=== PATIENT | male | born 1990 | race Caucasian/White ===

== ENCOUNTER 2017-01-21 10:05 | Emergency (ER) | payer SELFPAY ==
[~2017-01-21] VITALS: Ht 175.3 cm; Wt 86.2 kg
[~2017-01-21 10:05] MED LIST: AMOX500C2 PO; CEPH500C PO; CHLO473M PO; CLIN150C17 PO; CLIN300C11 PO; HYDR-3812 PO; HYDR-757 PO; IBUP-1779 PO; ONDAN4ODT PO; OXYC-471 PO; PRD50T PO; TRM50T PO
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
[2017-01-21] MEDS ORDERED: fentaNYL INJECTION 100 MCG/2 ML AMP IVP ONE (11:15)
[2017-01-21] MEDS ORDERED: ORPHENADRINE 60 MG/2 ML (NORFLEX) AMP IV ONE (11:15)
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
[2017-01-21] MEDS ORDERED: NS 100 ML (IVPB) BAG IV ONE (11:30)
[2017-01-21] MEDS ORDERED: CATHETER FLUSH 10 ML SYR IV PRN (11:30)
[2017-01-21] MEDS ORDERED: IOHEXOL 350 MG/ML 100 ML (OMNIPAQUE 350) VIAL IV ONE (11:30)
[2017-01-21 11:44] LABS: BASOPHILS % (AUTO) 0 % (0-10); BILIRUBIN,URINE NEGATIVE (NEGATIVE); EOSINOPHILS # (AUTO) 0.1 10^3/uL (0.0-0.3); EOSINOPHILS % (AUTO) 1 % (0-10); KETONES,URINE NEGATIVE (NEGATIVE); LEUKOCYTE ESTERASE ,URINE NEGATIVE (NEGATIVE); LYMPHOCYTES # (AUTO) 2.4 X 10^3 (1.0-4.0); LYMPHOCYTES % (AUTO) 31 % (12-44); MEAN CORPUSCULAR HEMOGLOBIN 32 PG (25-34); MEAN CORPUSCULAR HGB CONC 35 G/DL (32-36); MEAN CORPUSCULAR VOLUME 91 FL (80-99); MEAN PLATELET VOLUME 10.1 FL (7.4-10.4); MONOCYTES # (AUTO) 0.6 X 10^3 (0.0-1.0); MONOCYTES % (AUTO) 8 % (0-12); NEUTROPHILS # (AUTO) 4.7 X 10^3 (1.8-7.8); NEUTROPHILS % (AUTO) 60 % (42-75); NITRITE,URINE NEGATIVE (NEGATIVE); PH,URINE 7 (5-9); PLATELET COUNT 163 10^3/uL (130-400); PROTEIN,URINE NEGATIVE (NEGATIVE); RED CELL DISTRIBUTION WIDTH 12.1 % (10.0-14.5); UROBILINOGEN,URINE NORMAL (NORMAL); WHITE BLOOD COUNT 7.8 10^3/uL (4.3-11.0)
[2017-01-21 11:51] LABS: SQUAMOUS EPITHELIAL CELL,UR RARE /HPF
[2017-01-21 12:05] LABS: ALANINE AMINOTRANSFERASE 21 U/L (0-55); ALBUMIN 4.3 G/DL (3.2-4.5); ANION GAP 11 MMOL/L (5-14); ASPARTATE AMINO TRANSFERASE 22 U/L (5-34); BILIRUBIN,TOTAL 0.3 MG/DL (0.1-1.0); BLOOD UREA NITROGEN 10 MG/DL (7-18); BUN/CREATININE RATIO 11; CALCIUM 9.3 MG/DL (8.5-10.1); CARBON DIOXIDE 22 MMOL/L (21-32); CHLORIDE 108 MMOL/L (98-107); CREATININE SERUM 0.89 MG/DL (0.60-1.30); GFR ESTIMATED > 60; GLUCOSE 99 MG/DL (70-105); POTASSIUM 4.2 MMOL/L (3.6-5.0); SODIUM 141 MMOL/L (135-145); TOTAL PROTEIN 6.5 G/DL (6.4-8.2)
[2017-01-21] MEDS ORDERED: morphine INJ 10 MG/ML 1ML (SYR OR VIAL) IVP ONE (12:15)
--- NOTE | 2017-01-21 12:15 | Diagnostic Imaging Report ---
PROCEDURE: CT lumbar spine without contrast. TECHNIQUE: Multiple contiguous axial images were obtained through the lumbar spine without the use of intravenous contrast. Sagittal and coronal reformations were then performed. INDICATION: Low back pain injury and pain. COMPARISON: None. FINDINGS: There are 5 lumbar type vertebral bodies. Loss of the normal lumbar lordosis may be positional. Alignment is otherwise unremarkable. Vertebral body heights are maintained. No fractures. No pars defects. No appreciable spondylotic change. No spinal canal narrowing on this noncontrast exam. No neural foraminal narrowing. The visualized paravertebral soft tissues are unremarkable. IMPRESSION: Negative lumbar spine CT. Dictated by: Dictated on workstation # [id number]
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
[2017-01-21] MEDS ORDERED: KETOROLAC 30 MG/ML VIAL IVP ONE (13:00)
[2017-01-21] MEDS ORDERED: HYDR-3812 PO (13:12)
[2017-01-21] MEDS ORDERED: PRD20T PO (13:12)
[2017-01-21] MEDS ORDERED: predniSONE 20 MG TAB PO ONE (13:15)
[2017-01-21] MEDS ORDERED: oxyCODONE/APAP 5/325MG (PERCOCET 5) TABLET PO ONE (13:15)
[2017-01-21 13:23] VITALS: BP 135/75
== END 2017-01-21 13:22 | disposition home or self-care (01) ==
LOC: EDUNIT# 10:05 → ER 10:07
DX: S39.92XA Unspecified injury of lower back, initial encounter (principal); R10.32 Left lower quadrant pain; F17.210 Nicotine dependence, cigarettes, uncomplicated; W01.0XXA Fall on same level from slipping, tripping and stumbling without subsequent striking against object, initial encounter; Y99.8 Other external cause status
CPT/HCPCS: 36415; 71260; 72131; 74177; 80053; 81000; 85025; 96374; 96375

== ENCOUNTER 2017-02-02 22:03 | Emergency (ER) | payer SELFPAY ==
[~2017-02-02] VITALS: Ht 175.3 cm; Wt 88.5 kg
[~2017-02-02 22:03] MED LIST changes: +PRD20T PO
[2017-02-02] MEDS ORDERED: RX-CYCLOBENZAPRINE 10 MG (FLEXERIL) TAB PPK#3 PO STA (22:45)
[2017-02-02] MEDS ORDERED: RX-NAPROXEN (NAPROSYN) 250 MG TAB PPK#4 PO STA (22:45)
[2017-02-02] MEDS ORDERED: NAPR500T3 PO (22:49)
[2017-02-02] MEDS ORDERED: TRAM-42 PO (22:49)
[2017-02-02] MEDS ORDERED: CYCL10TA9 PO (22:49)
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
[2017-02-02 23:00] VITALS: BP 122/77
[2017-02-02] MEDS: RX-TRAMADOL 50 MG (ULTRAM) TAB PPK#4 PO STA (23:00)
--- OUTSIDE RECORDS SUMMARY | 2017-02-17 19:35 | XMS REPORT | Continuity of Care Document ---
Author Author [facility] Address Unknown Phone Unavailable Allergies Active Description Code Type Severity Reaction Onset Reported/Identified Relationship to Patient Clinical Status Yes tramadol [id number] Drug Allergy Mild Rash 02/02/2017 Yes No Known Drug Allergies [id number] Drug Allergy Unknown N/ A 02/03/2017 Medications Problems Date Dx Coded Attending Type [...] Ot 782.1 NONSPECIF SKIN ERUPT NEC 12/05/2011 CHUNG DO, OSWALDO K 465.9 UPPER RESPIRATORY INFECTION 12/05/2011 CHUNG DO, OSWALDO K 698.9 PRURITUS NOS 12/15/2013 CHUNG DO, OSWALDO K 706.2 SEBACEOUS CYST 08/07/2015 SAMIR NICHOLS ANDRIA Taveras Ot 784.2 SWELLING IN HEAD NECK 08/10/2015 DAJUAN DAMIAN, ELDA Osorio Ot F17.210 08/10/2015 DAJUAN DAMIAN, ELDA Osorio Ot J32.4 08/10/2015 DAJUAN DAMIAN, ELDA Osorio Ot K04.7 08/10/2015 DAJUAN ADMIAN, ELDA Osorio Ot M27.2 08/14/2015 SONIA BRADLEY MD Ot J32.4 08/14/2015 SONIA BRADLEY MD Ot K04.7 08/14/2015 MIRNA DAMIAN, SONIA Beckham [...] ARREDONDO APRN Ot K02.9 DENTAL CARIES, UNSPECIFIED 01/21/2017 RITA DAMIAN, BRENDA Sweeney Ot F17.210 NICOTINE DEPENDENCE, CIGARETTES, UNCOMPL 01/21/2017 BRENDA SALINAS MD Ot R10.32 LEFT LOWER QUADRANT PAIN 01/21/2017 BRENDA SALINAS MD Ot S39.92XA UNSPECIFIED INJURY OF LOWER BACK, INITIA 01/21/2017 BRENDA SALINAS MD Ot W01.0XXA FALL SAME LEV FROM SLIP/TRIP W/O STRIKE 01/21/2017 BRENDA SALINAS MD Ot Y99.8 OTHER EXTERNAL CAUSE STATUS 01/22/2017 BRENDA SALINAS MD Ot F17.210 NICOTINE DEPENDENCE, CIGARETTES, UNCOMPL 01/22/2017 BRENDA SALINAS MD Ot R10.32 LEFT LOWER QUADRANT PAIN 01/22/2017 BRENDA SALINAS MD Ot S39.92XA UNSPECIFIED INJURY OF LOWER BACK, INITIA 01/22/2017 BRENDA SALINAS MD Ot W01.0XXA FALL SAME LEV FROM SLIP/TRIP W/O STRIKE 01/22/2017 BRENDA SALINAS MD Ot Y99.8 OTHER EXTERNAL CAUSE STATUS 01/28/2017 BRENDA SALINAS MD Ot F17.210 NICOTINE DEPENDENCE, CIGARETTES, UNCOMPL 01/28/2017 BRENDA SALINAS MD Ot R10.32 LEFT LOWER QUADRANT PAIN 01/28/2017 BRENDA SALINAS MD Ot S39.92XA UNSPECIFIED INJURY OF LOWER BACK, INITIA 01/28/2017 BRENDA SALINAS MD Ot W01.0XXA FALL SAME LEV FROM SLIP/TRIP W/O STRIKE 01/28/2017 BRENDA SALINAS MD Ot Y99.8 OTHER EXTERNAL CAUSE STATUS Procedures Results Test Result Range Complete blood count (CBC) with automated white blood cell (WBC) differential - 01/21/17 11:30 Blood leukocytes automated count (number/volume) 7.8 10*3/ uL 4.3-11.0 Blood erythrocytes automated count (number/volume) 5.00 10*6 /uL 4.35-5.85 Venous blood hemoglobin measurement (mass/volume) 16.0 g/dL 13.3-17.7 Blood hematocrit (volume fraction) 46 % 40-54 Automated erythrocyte mean corpuscular volume 91 [foz_us] 80-99 Automated erythrocyte mean corpuscular hemoglobin (mass per erythrocyte) 32 pg 25-34 Automated erythrocyte mean corpuscular hemoglobin concentration measurement ( mass/volume) 35 g/dL 32-36 Automated erythrocyte distribution width ratio 12.1 % 10.0-14.5 Automated blood platelet count (count/volume) 163 10*3/uL 130-400 Automated blood platelet mean volume measurement 10.1 [foz_ us] 7.4-10.4 Automated blood neutrophils/100 leukocytes 60 % 42-75 Automated blood lymphocytes/100 leukocytes 31 % 12-44 Blood monocytes/100 leukocytes 8 % 0-12 Automated blood eosinophils/100 leukocytes 1 % 0-10 Automated blood basophils/100 leukocytes 0 % 0-10 Blood neutrophils automated count (number/volume) 4.7 10*3 1.8-7.8 Blood lymphocytes automated count (number/volume) 2.4 10*3 1.0-4.0 Blood monocytes automated count (number/volume) 0.6 10*3 0.0-1.0 Automated eosinophil count 0.1 10*3/uL 0.0-0.3 Automated blood basophil count (count/volume) 0.0 10*3/uL 0.0-0.1 Complete urinalysis with reflex to culture - 01/21/17 11:30 Urine color determination YELLOW NRG Urine clarity determination CLEAR NRG Urine pH measurement by test strip 7 5- 9 Specific gravity of urine by test strip 1.015 1.016-1.022 Urine protein assay by test strip, semi-quantitative NEGATIVE NEGATIVE Urine glucose detection by automated test strip NEGATIVE NEGATIVE Erythrocytes detection in urine sediment by light microscopy NEGATIVE NEGATIVE Urine ketones detection by automated test strip NEGATIVE NEGATIVE Urine nitrite detection by test strip NEGATIVE NEGATIVE Urine total bilirubin detection by test strip NEGATIVE NEGATIVE Urine urobilinogen measurement by automated test strip (mass/volume) NORMAL NORMAL Urine leukocyte esterase detection by dipstick NEGATIVE NEGATIVE Automated urine sediment erythrocyte count by microscopy (number/high power field) NONE NRG Automated urine sediment leukocyte count by microscopy (number/high power field ) NONE NRG Bacteria detection in urine sediment by light microscopy NEGATIVE NRG Squamous epithelial cells detection in urine sediment by light microscopy RARE NRG Crystals detection in urine sediment by light microscopy NONE NRG Casts detection in urine sediment by light microscopy NONE NRG Mucus detection in urine sediment by light microscopy NEGATIVE NRG Complete urinalysis with reflex to culture NO NRG Comprehensive metabolic panel - 01/21/17 11:30 Serum or plasma sodium measurement (moles/volume) 141 mmol/ L 135-145 Serum or plasma potassium measurement (moles/volume) 4.2 mmol/L 3.6-5.0 Serum or plasma chloride measurement (moles/volume) 108 mmol /L 98-107 Carbon dioxide 22 mmol/L 21-32 Serum or plasma anion gap determination (moles/volume) 11 mmol/L 5-14 Serum or plasma urea nitrogen measurement (mass/volume) 10 mg/dL 7-18 Serum or plasma creatinine measurement (mass/volume) 0.89 mg /dL 0.60-1.30 Serum or plasma urea nitrogen/creatinine mass ratio 11 NRG Serum or plasma creatinine measurement with calculation of estimated glomerular filtration rate > NRG Serum or plasma glucose measurement (mass/volume) 99 mg/dL 70-105 Serum or plasma calcium measurement (mass/volume) 9.3 mg/dL 8.5-10.1 Serum or plasma total bilirubin measurement (mass/volume) 0.3 mg/dL 0.1-1.0 Serum or plasma alkaline phosphatase measurement (enzymatic activity/volume) 55 U/L 40-136 Serum or plasma aspartate aminotransferase measurement (enzymatic activity/ volume) 22 U/L 5-34 Serum or plasma alanine aminotransferase measurement (enzymatic activity/volume ) 21 U/L 0-55 Serum or plasma protein measurement (mass/volume) 6.5 g/dL 6.4-8.2 Serum or plasma albumin measurement (mass/volume) 4.3 g/dL 3.2-4.5 Encounters ACCT No. Visit Date/Time Discharge Status Pt. Type Provider Facility Loc./Unit Complaint [id number] 12/15/2013 16:46:00 12/15/2013 23: 59:59 CLS Outpatient OSWALDO CHUNG DO
== END 2017-02-02 23:00 | disposition home or self-care (01) ==
LOC: EDUNIT# 22:03 → ER 22:05
DX: M54.5 Low back pain (principal); F17.210 Nicotine dependence, cigarettes, uncomplicated
CPT/HCPCS: 99281

== ENCOUNTER 2019-08-30 12:21 | Emergency (ER) | payer SELFPAY ==
[~2019-08-30] VITALS: Ht 175.3 cm; Wt 106.1 kg
[~2019-08-30 12:21] MED LIST changes: +ACHD5005 PO; +CYCL10TA9 PO; -HYDR-3812 PO; +HYDR-4226 PO; -HYDR-757 PO; +NAPR-915 PO; +TRAM-42 PO
--- NOTE | 2019-08-30 12:50 | ED Fall/Injury ---
General Chief Complaint: Laceration Stated Complaint: LT EYELID LAC Source: patient History of Present Illness Date Seen by Provider: Aug 30, 2019 Time Seen by Provider: 12:30 Initial Comments Superficial Left upper eyelid laceration. Cut with small piece of metal. No eye fb sensation or eye pain. Tetanus is up to date. Occurred: just prior to arrival Severity: mild Injuries/Pain Location: no injury Context: unknown Loss of Consciousness: no loss of consciousness Associated Symptoms (Fall): Denies Symptoms Allergies and Home Medications Allergies Coded Allergies: No Known Drug Allergies (Unverified , 02/03/17) Home Medications Cyclobenzaprine HCl 10 Mg Tablet, 10 MG PO Q8H Prescribed by: ANDRIA DAWSON on 02/02/172248 Ibuprofen 400 Mg Tablet, 400 MG PO Q4H PRN for PAIN Over the counter. No more than 2400 mg in 24 hours Prescribed by: LUCÍA MORALES on 08/10/15 0920 Naproxen 500 Mg Tablet, 500 MG PO BID Prescribed by: ANDRIA DAWSON on 02/02/172248 Tramadol HCl 50 Mg Tablet, 50 MG PO Q4H Prescribed by: ANDRIA DAWSON on 02/02/172248 Patient Home Medication List Home Medication List Reviewed: Yes Review of Systems Review of Systems Constitutional: no symptoms reported Eyes: No Symptoms Reported Past Kibtgha-Wlrqwc-Nleouy Hx Past Med/Social Hx: Reviewed Nursing Past Med/Soc Hx Patient Social History Type Used: Cigarettes Recent Foreign Travel: No Recent Hopitalizations: No Immunizations Up To Date Tetanus Booster (TDap): Less than 5yrs PED Vaccines UTD: Yes Seasonal Allergies Seasonal Allergies: No Past Medical History Reproductive Disorders: No Sexually Transmitted Disease: No HIV/AIDS: No ADD/ADHD Adverse Reaction/Blood Tranf: No Physical Exam Vital Signs Capillary Refill : Height, Weight, BMI Height: 5'9.00" Weight: 195lbs. 0.0oz. 88.596372wt; 29.12 BMI Method:Stated General Appearance: WD/WN, no apparent distress HEENT: PERRL/EOMI, normal ENT inspection, other (5 mm superficial (partial thickness) horizontal laceration left upper eyelid) Procedures/Interventions Wound Location: Face Wound's Depth, Shape: superficial Wound Explored: clean Betadine Prep?: Yes Suture: Ethlion Suture Size: 6-0 Number of Sutures: 1 Departure Communication (Admissions) Isalated superficial left upper eyelid laceration without ocular involvement. Wound closed by suture per patient request. Patient instructed to return the ED in 5-6 days for suture removal, sooner if signs of infection. Impression Primary Impression: Eyelid laceration, left Disposition: 01 HOME, SELF-CARE Condition: Stable Departure-Patient Inst. Referrals: NO,LOCAL PHYSICIAN (PCP/Family) Primary Care Physician Patient Instructions: Wound Care Add. Discharge Instructions: Return to the ED in 5-6 days for suture removal. Return sooner if signs of infection. All discharge instructions reviewed with patient and/or family. Voiced unde rstanding. NAOMI ABBOTT DO Aug 30, 2019 12:50
[2019-08-30 12:58] VITALS: BP 137/77
== END 2019-08-30 12:58 | disposition home or self-care (01) ==
LOC: EDUNIT# 12:21 → ER FS 12:23
DX: S01.112A Laceration without foreign body of left eyelid and periocular area, initial encounter (principal); F90.9 Attention-deficit hyperactivity disorder, unspecified type; W26.8XXA Contact with other sharp object(s), not elsewhere classified, initial encounter
CPT/HCPCS: 12011

== ENCOUNTER → 2019-09-28 | Outpatient (CLI) | payer SELFPAY ==
--- NOTE | 2019-09-28 09:38 | Diagnostic Imaging Report ---
INDICATION: Knee pain. 5 days history popping and grinding FINDINGS: No fracture, dislocation, loose body, articular irregularity or malalignment. Joint space is preserved. IMPRESSION: No radiographic . Dictated by: Dictated on workstation # [id number]
== END ==
LOC: RAD FS 09:14
PROVIDERS: ATTEND Nurse Practitioner
DX: M25.562 Pain in left knee (principal)
CPT/HCPCS: 73562

== ENCOUNTER 2019-11-13 13:34 | Emergency (ER) | payer SELFPAY ==
[~2019-11-13] VITALS: Ht 176 cm; Wt 107.5 kg
[2019-11-13 14:42] LABS: BACTERIA,URINE NEGATIVE /HPF; BILIRUBIN,URINE NEGATIVE (NEGATIVE); CLARITY,URINE CLEAR; COLOR,URINE YELLOW; GLUCOSE, URINE (UA) NEGATIVE (NEGATIVE); KETONES,URINE NEGATIVE (NEGATIVE); LEUKOCYTE ESTERASE ,URINE NEGATIVE (NEGATIVE); NITRITE,URINE NEGATIVE (NEGATIVE); PROTEIN,URINE NEGATIVE (NEGATIVE); WBC,URINE RARE /HPF
[2019-11-13 14:43] LABS: AMORPHOUS SEDIMENT,UR FEW AMOR PHOSPHATE /LPF
--- NOTE | 2019-11-13 15:09 | ED GU-Male ---
General Chief Complaint: Male Reproductive Stated Complaint: TESTICULAR PAIN Nursing Triage Note: Patient c/o of left testical swelling and pain. States that he normally has a small pea sized lump on his left testical but today after sex he noticed that it was the size of a ping pong ball. He reports that the pain radiates up into his belly from the left testicle. 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 No more than 2400 mg in 24 hours Prescribed by: LUCÍA MORALES on 08/10/15 0920 Naproxen 500 Mg Tablet, 500 MG PO BID Prescribed by: ANDRIA DAWSON on 02/02/172248 Tramadol HCl 50 Mg Tablet, 50 MG PO Q4H Prescribed by: ANDRIA DAWSON on 02/02/172248 Patient Home Medication List Home Medication List Reviewed: Yes Review of Systems Review of Systems Constitutional: no symptoms reported; No fever EENTM: no symptoms reported Respiratory: no symptoms reported Cardiovascular: no symptoms reported Gastrointestinal: abdominal pain, other (pain and swelling left testicle after intercourse better now) Genitourinary: denies discharge, denies dysuria Musculoskeletal: no symptoms reported Past Njipudb-Gvgahj-Zbxeqp Hx Patient Social History Alcohol Use: Denies Use Recreational Drug Use: No Smoking Status: Current Everyday Smoker Type Used: Cigarettes 2nd Hand Smoke Exposure: Yes Recent Foreign Travel: No Contact w/Someone Who Travel: No Recent Infectious Disease Expo: No Recent Hopitalizations: No Physical Abuse: No Sexual Abuse: No Mistreated: No Fear: No Immunizations Up To Date Tetanus Booster (TDap): Less than 5yrs PED Vaccines UTD: Yes Seasonal Allergies Seasonal Allergies: No Past Medical History Surgeries: Yes (Sebaceous cyst removed from face, L Knee) Orthopedic Respiratory: No Cardiac: No Neurological: No Reproductive Disorders: No Sexually Transmitted Disease: No HIV/AIDS: No Genitourinary: No Gastrointestinal: No Musculoskeletal: No Endocrine: No HEENT: No Cancer: No Psychosocial: Yes ADD/ADHD Integumentary: No Blood Disorders: No Adverse Reaction/Blood Tranf: No Physical Exam Vital Signs Vital Signs - First Documented 11/13/19 13:49 Temp 37.1 Pulse 101 Resp 18 B/P (MAP) 148/99 (115) Pulse Ox 97 O2 Delivery Room Air Capillary Refill : Less Than 3 Seconds Height, Weight, BMI Height: 5'9.00" Weight: 195lbs. 0.0oz. 88.232535xq; 34.00 BMI Method:Stated General Appearance: WD/WN, no apparent distress HEENT: PERRL/EOMI Neck: supple Cardiovascular: regular rate, rhythm Respiratory: normal breath sounds Gastrointestinal: normal bowel sounds, non tender, soft Male: other (clearly NOT TORSION testicle moves easily only mildly tender knot tissue sup varicocele? no sono available here) Procedures/Interventions Suture Size: 6-0 Progress/Results/Core Measures Suspected Sepsis Recent Fever Within 48 Hours: No Infection Criteria Present: Suspected New Infection New/Unexplained Altered Menta: No Sepsis Screen: No Definite Risk SIRS Temperature: Pulse: 101 Respiratory Rate: 18 Blood Pressure 148 /99 Mean: 115 Results/Orders Lab Results Laboratory Tests Test 11/13/19 13:55 Range/Units Urine Color YELLOW Urine Clarity CLEAR Urine pH 7.0 5-9 Urine Specific [place] 1.010 L 1.016-1.022 Urine Protein NEGATIVE NEGATIVE Urine Glucose (UA) NEGATIVE NEGATIVE Urine Ketones NEGATIVE NEGATIVE Urine Nitrite NEGATIVE NEGATIVE Urine Bilirubin NEGATIVE NEGATIVE Urine Urobilinogen 0.2 < = 1.0 MG/DL Urine Leukocyte Esterase NEGATIVE NEGATIVE Urine RBC (Auto) NEGATIVE NEGATIVE Urine RBC NONE /HPF Urine WBC RARE /HPF Urine Squamous Epithelial Cells NONE /HPF Urine Crystals PRESENT H /LPF Urine Amorphous Sediment FEW 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 Decision time for Depature: 15:12 Referrals: NO,LOCAL PHYSICIAN (PCP/Family) Primary Care Physician Patient Instructions: Epididymitis (DC), Varicocele Add. Discharge Instructions: the urine analysis didn't show anything abnormal feel you probably have a varicocele, which is essentially a clump of blood vessels nothing dangerous in case you might have an infection epididymitis an antibiotic has been prescribed suggest you follow up with your doctor if you could see a urologist that would be best a sono could probably provide more specific information that was not available to us today Scripts Acetaminophen with Codeine (Tylenol with Codeine #3 Tablet) 1 Each Tablet 1 EACH PO TID for Pain for 7 Days, #15 TAB Prov: NIKOLAS NASCIMENTO MD 11/13/19 Doxycycline Hyclate (Doxycycline Hyclate) 100 Mg Tablet 100 MG PO BID, #14 TAB 0 Refills Prov: NIKOLAS NASCIMENTO MD 11/13/19 NIKOLAS NASCIMENTO MD Nov 13, 2019 15:09
[2019-11-13] MEDS ORDERED: DOXY100T2 PO (15:14)
[2019-11-13] MEDS ORDERED: ACET-789 PO (15:14)
[2019-11-13 15:45] VITALS: BP 137/89
== END 2019-11-13 15:45 | disposition home or self-care (01) ==
LOC: EDUNIT# 13:34 → ER FS 13:36
DX: N45.1 Epididymitis (principal); I86.1 Scrotal varices; F90.9 Attention-deficit hyperactivity disorder, unspecified type; F17.210 Nicotine dependence, cigarettes, uncomplicated
CPT/HCPCS: 81000; 99283

== ENCOUNTER 2020-09-13 17:47 | Emergency (ER) | payer SELFPAY ==
[~2020-09-13] VITALS: Ht 175.2 cm; Wt 105.7 kg
[~2020-09-13 17:47] MED LIST changes: +ACET-789 PO; -CHLO473M PO; +DOXY100T2 PO; +NFCHLORHGL PO
--- NOTE | 2020-09-13 17:53 | ED EENT ---
History of Present Illness General Stated Complaint: TOOTH INFECTION,FACIAL SWELLING Source: patient Exam Limitations: no limitations History of Present Illness Date Seen by Provider: Sep 13, 2020 Time Seen by Provider: 17:53 Initial Comments 29-year-old male presents with dental infection on the side of his face with some facial swelling. Patient saw the dentist earlier today and was prescribed amoxicillin. Patient however has not got amoxicillin filled yet as he saw the dentist and [place]. Patient reports worsening pain along with some increased swelling so he presented to the ER. He does not have any nausea vomiting fevers chills or other systemic complaints. Allergies and Home Medications Allergies Coded Allergies: No Known Drug Allergies (Unverified , 02/03/17) Home Medications Acetaminophen with Codeine 1 Each Tablet, 1 EACH PO TID Prescribed by: NIKOLAS NASCIMENTO on 11/13/19 1514 Cyclobenzaprine HCl 10 Mg Tablet, 10 MG PO Q8H Prescribed by: ANDRIA DAWSON on 02/02/172248 Doxycycline Hyclate 100 Mg Tablet, 100 MG PO BID Prescribed by: NIKOLAS NASCIMENTO on 11/13/19 1514 Ibuprofen 400 Mg Tablet, 400 MG PO Q4H PRN for PAIN Over the counter. No more than 2400 mg in 24 hours Prescribed by: LUCÍA MORALES on 08/10/15 0920 Naproxen 500 Mg Tablet, 500 MG PO BID Prescribed by: ANDRIA DAWSON on 02/02/172248 Tramadol HCl 50 Mg Tablet, 50 MG PO Q4H Prescribed by: ANDRIA DAWSON on 02/02/172248 Patient Home Medication List Home Medication List Reviewed: Yes Review of Systems Review of Systems Constitutional: No chills, No fever Eyes: No Symptoms Reported Nose: no symptoms reported Mouth: see HPI Throat: no symptoms reported Respiratory: no symptoms reported Cardiovascular: no symptoms reported Gastrointestinal: no symptoms reported Musculoskeletal: no symptoms reported Skin: see HPI Neurological: No Symptoms Reported Hematologic/Lymphatic: No Symptoms Reported Immunological/Allergic: no symptoms reported Past Fvervfh-Nkgfsq-Wazqoh Hx Past Med/Social Hx: Reviewed Nursing Past Med/Soc Hx Patient Social History Type Used: Cigarettes 2nd Hand Smoke Exposure: Yes Recent Foreign Travel: No Contact w/Someone Who Travel: No Recent Hopitalizations: No Immunizations Up To Date Tetanus Booster (TDap): Less than 5yrs PED Vaccines UTD: Yes Seasonal Allergies Seasonal Allergies: No Past Medical History Surgeries: Yes (Sebaceous cyst removed from face, L Knee) Orthopedic Respiratory: No Cardiac: No Neurological: No Reproductive Disorders: No Sexually Transmitted Disease: No HIV/AIDS: No Genitourinary: No Gastrointestinal: No Musculoskeletal: No Endocrine: No HEENT: No Cancer: No Psychosocial: Yes ADD/ADHD Integumentary: No Blood Disorders: No Adverse Reaction/Blood Tranf: No Physical Exam Height, Weight, BMI Height: 5'9.00" Weight: 195lbs. 0.0oz. 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 I will give him Rocephin and Toradol shots. He should start his amoxicillin as prescribed by his dentist. Patient is discharged home in stable condition to follow up with a dentist as already arranged Departure Impression Primary Impression: Infected dental caries Additional Impression: Facial cellulitis Disposition: 01 HOME, SELF-CARE Condition: Stable Departure-Patient Inst. Referrals: NO,LOCAL PHYSICIAN (PCP/Family) Primary Care Physician Patient Instructions: Cellulitis (Skin Infection), Adult (DC), Tooth Decay, Adult, Tooth Abscess (DC) Add. Discharge Instructions: Ibuprofen 800 mg every 6-8 hours, did not start until the a.m. Acetaminophen 1000mg every 6 hours Listerine gargles Clove oil to affected areas JAYCE DELCID DO Sep 13, 2020 17:53
[2020-09-13] MEDS ORDERED: KETOROLAC 60 MG/2 ML VIAL IM STA (17:57)
[2020-09-13 18:00] VITALS: BP 137/89
[2020-09-13] MEDS ORDERED: cefTRIAXone 1,000 MG/2.86 ml vial (IM ONLY) IM ONE (18:00)
[2020-09-13] MEDS ORDERED: LIDOCAINE 1% INJ 20 ML 20 ML VIAL INJ ONE (18:00)
== END 2020-09-13 18:22 | disposition home or self-care (01) ==
LOC: EDUNIT# 17:47 → ER FS 17:49
DX: K02.9 Dental caries, unspecified (principal); L03.211 Cellulitis of face; Z77.22 Contact with and (suspected) exposure to environmental tobacco smoke (acute) (chronic)
CPT/HCPCS: 99284

== ENCOUNTER 2021-08-20 16:10 | Emergency (ER) | payer MEDICAID ==
[~2021-08-20] VITALS: Ht 175 cm; Wt 95.0 kg
[~2021-08-20 16:10] MED LIST changes: -CLIN150C17 PO; +CLIN150C20 PO; -CLIN300C11 PO; +CLIN300C12 PO; -OXYC-471 PO; +OXYC1TAB11 PO
[2021-08-20 16:13] VITALS: BP 130/88
[2021-08-20] MEDS ORDERED: RX-IBUPROFEN 600 MG (MOTRIN) TAB PPK#4 PO STA (18:30)
[2021-08-20] MEDS ORDERED: RX-CLINDAMYCIN 150 MG (CLEOCIN) CAP PPK#4 PO STA (18:30)
[2021-08-20] MEDS ORDERED: IBUP-1780 PO (18:34)
[2021-08-20] MEDS ORDERED: CLIN150C20 PO (18:34)
--- NOTE | 2021-08-20 18:35 | ED EENT ---
History of Present Illness General Chief Complaint: Dental Problems/Pain Stated Complaint: DENTAL ABSCESS Nursing Triage Note: Pt ambulatory to ED with by POV with c/o dental pain x 1 wk. (MARCOS DESIR) History of Present Illness Date Seen by Provider: Aug 20, 2021 Time Seen by Provider: 16:30 Initial Comments 30-year-old male reports for dental pain that is been present for approximately 1 week it is on the right lower molars. He has not seen a dentist for over 3 years and is establishing new insurance with his employer. He has tried to set an appointment at [facility] dental but they were booked approximately 2 weeks out. He took ibuprofen 600 mg a day for pain. Timing/Duration: intermittent Severity: moderate Location: dental Prearrival Treatment: over the counter meds Associated Symptoms: denies symptoms (MARCOS DESIR) Allergies and Home Medications Allergies Coded Allergies: No Known Drug Allergies (Unverified , 02/03/17) Patient Home Medication List Home Medication List Reviewed: Yes (MARCOS DESIR) Acetaminophen with Codeine (Tylenol with Codeine #3 Tablet) 1 Each Tablet, 1 EACH PO TID Prescribed by: NIKOLAS NASCIMENTO on 11/13/19 151 Clindamycin HCl (Clindamycin HCl) 150 Mg Capsule, 150 MG PO Q6H Prescribed by: MARCOS DESIR on 08/20/21 183 Cyclobenzaprine HCl (Cyclobenzaprine HCl) 10 Mg Tablet, 10 MG PO Q8H Prescribed by: ANDRIA DAWSON on 02/02/172248 Doxycycline Hyclate (Doxycycline Hyclate) 100 Mg Tablet, 100 MG PO BID Prescribed by: NIKOLAS NASCIMENTO on 11/13/19 1514 Ibuprofen (Ibuprofen) 400 Mg Tablet, 400 MG PO Q4H PRN for PAIN Prescribed by: LUCÍA MORALES on 08/10/15 0920 Ibuprofen (Ibuprofen) 800 Mg Tablet, 800 MG PO Q8H PRN for PAIN Prescribed by: MARCOS DESIR on 08/20/21 183 Naproxen (Naproxen) 500 Mg Tablet, 500 MG PO BID Prescribed by: ANDRIA DAWSON on 02/02/172248 Tramadol HCl (Ultram) 50 Mg Tablet, 50 MG PO Q4H Prescribed by: ANDRIA DAWSON on 02/02/172248 Review of Systems Review of Systems Constitutional: no symptoms reported, see HPI (MARCOS DESIR) All Other Systems Reviewed Negative Unless Noted: Yes (MARCOS DESIR) Past Knrdret-Krzdtc-Nsqwps Hx Immunizations Up To Date Tetanus Booster (TDap): Less than 5yrs PED Vaccines UTD: Yes (MARCOS DESIR) Seasonal Allergies Seasonal Allergies: No (MARCOS DESIR) Past Medical History Surgeries: Yes (Sebaceous cyst removed from face, L Knee) Orthopedic Respiratory: No Cardiac: No Neurological: No Reproductive Disorders: No Sexually Transmitted Disease: No HIV/AIDS: No Genitourinary: No Gastrointestinal: No Musculoskeletal: No Endocrine: No HEENT: Yes (Dental decay) Cancer: No Psychosocial: Yes ADD/ADHD Integumentary: No Blood Disorders: No Adverse Reaction/Blood Tranf: No (MARCOS DESIR) Family Medical History Reviewed Nursing Family Hx (MARCOS DESIR) Physical Exam Vital Signs Vital Signs - First Documented 08/20/21 16:13 Temp 36.7 Pulse 91 Resp 18 B/P (MAP) 130/88 (102) Pulse Ox 99 O2 Delivery Room Air ([facility]) Height, Weight, BMI Height: 5'9.00" Weight: 195lbs. 0.0oz. 88.940105hk; 31.00 BMI Method:Stated General Appearance: WD/WN, no apparent distress Eyes: bilateral eye normal inspection, bilateral eye PERRL, bilateral eye EOMI Ears: bilateral ear auricle normal, bilateral ear canal normal, bilateral ear TM normal Nose: normal inspection; No discharge Mouth/Throat: pharynx normal, dental tenderness (Right lower molars); No excessive drooling; mandibular swelling (Right) Neck: non-tender, full range of motion, normal inspection, lymphadenopathy (R) Cardiovascular: normal peripheral pulses, regular rate, rhythm Respiratory: chest non-tender, lungs clear, normal breath sounds Neurologic/Psychiatric: no motor/sensory deficits, alert, normal mood/affect, oriented x 3 (MARCOS DESIR) Procedures/Interventions Suture Size: 6-0 (MARCOS DESIR) Progress/Results/Core Measures Results/Orders Vital Signs/I&O 08/20/21 16:13 Temp 36.7 Pulse 91 Resp 18 B/P (MAP) 130/88 (102) Pulse Ox 99 O2 Delivery Room Air (ANDRIA DAWSON DO) Blood Pressure Mean: 102 Departure Impression Primary Impression: Dental abscess Additional Impression: Dental caries Disposition: 01 HOME, SELF-CARE Condition: Improved Departure-Patient Inst. Decision time for Depature: 18:20 (MARCOS DESIR) Referrals: NO,LOCAL PHYSICIAN (PCP/Family) Primary Care Physician Patient Instructions: Dental Pain (DC), Tooth Abscess (DC) Add. Discharge Instructions: Gargle warm salt water every hour or 2 as needed. You may also try gargling with Listerine. Take the ibuprofen as prescribed, you may alternate between ibuprofen and Tylenol every 4 hours for pain. Increase the water and liquids in your diet. Schedule appointment with a dentist, the Emergency Dept is not able to provide the dental care that you need. Take antibiotics as prescribed. Return to the emergency department for new, urgent healthcare problems. All discharge instructions reviewed with patient and/or family. Voiced understanding. Scripts Ibuprofen (Ibuprofen) 800 Mg Tablet 800 MG PO Q8H PRN for PAIN, #30 TAB 0 Refills Prov: MARCOS DESIR 08/20/21 Clindamycin HCl (Clindamycin HCl) 150 Mg Capsule 150 MG PO Q6H, #30 CAP 0 Refills Prov: MARCOS DESIR 08/20/21 Work/School Note: Work Release Form Date Seen in the Emergency Department: Aug 20, 2021 Return to Work: Aug 21, 2021 Restrictions: No Restrictions ATTENDING PHYSICIAN NOTE: I WAS PHYSICALLY PRESENT ER PHYSICIAN, WHEN THIS PATIENT WAS IN ER, BUT I WAS NOT INVOLVED IN DECISION MAKING OR ANY CARE OF THIS PATIENT. (ANDRIA DAWSON DO) MARCOS DESIR Aug 20, 2021 18:35 ANDRIA DAWSON DO Aug 21, 2021 02:04
== END 2021-08-20 18:53 | disposition home or self-care (01) ==
LOC: EDUNIT# 16:10 → ER 16:11
DX: K04.7 Periapical abscess without sinus (principal); K02.9 Dental caries, unspecified
CPT/HCPCS: 99283

== ENCOUNTER 2021-11-09 16:55 | Emergency (ER) | payer MEDICAID ==
[~2021-11-09] VITALS: Ht 175 cm; Wt 86.0 kg
[~2021-11-09 16:55] MED LIST changes: +CLIN-144 PO; -CLIN300C12 PO; +CYCL10TA25 PO; -CYCL10TA9 PO; +IBUP-1780 PO
[2021-11-09 17:10] VITALS: BP 117/76
--- NOTE | 2021-11-09 18:00 | ED Upper Extremity ---
General Chief Complaint: Upper Extremity Stated Complaint: RIGHT HAND INJURY Nursing Triage Note: ARRIVED VIA AMB TO ROOM 08. STATES HE SMASHED HIS RIGHT HAND YESTERDAY WHILE WORKING ON HIS CAR. STATES HE IS UNABLE TO WORK BECAUSE OF IT. Source: patient Exam Limitations: no limitations History of Present Illness Date Seen by Provider: Nov 09, 2021 Time Seen by Provider: 17:58 Initial Comments To ER with right hand pain. His friend let the car down off the osiel to quick yesterday. He felt a popping sensation. 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 Onset: yesterday Severity: moderate Pain/Injury Location: right hand Method of Injury: direct blow Modifying Factors: Worse With Movement Allergies and Home Medications Allergies Coded Allergies: No Known Drug Allergies (Unverified , 02/03/17) Patient Home Medication List Home Medication List Reviewed: Yes Acetaminophen with Codeine (Tylenol with Codeine #3 Tablet) 1 Each Tablet, 1 EACH PO TID Prescribed by: NIKOLAS NASCIMENTO on 11/13/19 1514 Clindamycin HCl (Clindamycin HCl) 150 Mg Capsule, 150 MG PO Q6H Prescribed by: MARCOS DESIR on 08/20/21 1834 Cyclobenzaprine HCl (Cyclobenzaprine HCl) 10 Mg Tablet, 10 MG PO Q8H Prescribed by: ANDRIA DAWSON on 02/02/172248 Doxycycline Hyclate (Doxycycline Hyclate) 100 Mg Tablet, 100 MG PO BID Prescribed by: NIKOLAS NASCIMENTO on 11/13/19 1514 Ibuprofen (Ibuprofen) 400 Mg Tablet, 400 MG PO Q4H PRN for PAIN Prescribed by: LUCÍA MORALES on 08/10/15 0920 Ibuprofen (Ibuprofen) 800 Mg Tablet, 800 MG PO Q8H PRN for PAIN Prescribed by: MARCOS DESIR on 08/20/21 1834 Naproxen (Naproxen) 500 Mg Tablet, 500 MG PO BID Prescribed by: ANDRIA DAWSON on 02/02/172248 Tramadol HCl (Ultram) 50 Mg Tablet, 50 MG PO Q4H Prescribed by: ANDRIA DAWSON on 02/02/172248 Review of Systems Constitutional: see HPI EENTM: see HPI Respiratory: no symptoms reported Cardiovascular: no symptoms reported Genitourinary: no symptoms reported Musculoskeletal: see HPI Skin: no symptoms reported Psychiatric/Neurological: No Symptoms Reported Past Kycsyzc-Ivpnfm-Twtnwo Hx Patient Social History Smoking Status: Current Everyday Smoker Alcohol Use?: No Immunizations Up To Date Tetanus Booster (TDap): Less than 5yrs PED Vaccines UTD: Yes Seasonal Allergies Seasonal Allergies: No Past Medical History Surgeries: Yes (Sebaceous cyst removed from face, L Knee) Orthopedic Respiratory: No Cardiac: No Neurological: No Reproductive Disorders: No Sexually Transmitted Disease: No HIV/AIDS: No Genitourinary: No Gastrointestinal: No Musculoskeletal: No Endocrine: No HEENT: Yes (Dental decay) Cancer: No Psychosocial: Yes ADD/ADHD Integumentary: No Blood Disorders: No Adverse Reaction/Blood Tranf: No Physical Exam Vital Signs Vital Signs - First Documented 11/09/21 17:10 Temp 37.0 Pulse 105 Resp 16 B/P (MAP) 117/76 (90) Pulse Ox 97 O2 Delivery Room Air Capillary Refill : Less Than 3 Seconds Height, Weight, BMI Height: 5'9.00" Weight: 195lbs. 0.0oz. 88.448754kk; 28.00 BMI Method:Stated General Appearance: WD/WN, no apparent distress HEENT: PERRL/EOMI, normal ENT inspection Neck: non-tender, full range of motion Respiratory: no respiratory distress, no accessory muscle use Gastrointestinal: normal bowel sounds, non tender Elbow/Forearm: normal inspection, non-tender Wrist: Yes normal inspection, Yes non-tender Hand: Right, deformity, limited ROM, soft tissue tenderness, swelling Neurologic/Tendon: normal sensation, normal motor functions Neurologic/Psychiatric: alert, normal mood/affect, oriented x 3 Skin: normal color, warm/dry Procedures/Interventions Suture Size: 6-0 Progress/Results/Core Measures Results/Orders My Orders Orders - ARIELLE ARREDONDO APRN Hand, Right, 3 Views (11/09/21 17:33) Vital Signs/I&O 11/09/21 17:10 Temp 37.0 Pulse 105 Resp 16 B/P (MAP) 117/76 (90) Pulse Ox 97 O2 Delivery Room Air Blood Pressure Mean: 90 Departure Communication (Admissions) There is some edema over the dorsal aspect of the hand. I will see any fracture or dislocation on plain films. Questionable area of lucency at the base of the third metacarpal. Fingertips have capillary refill of 3 seconds across the entire hand. We will place him in a Colles' splint, ice pack, elevate, note to be off work and pain medication. There are no open wounds. Impression Primary Impression: Traumatic hematoma of hand Disposition: HOME, SELF-CARE Condition: Stable Departure-Patient Inst. Decision time for Depature: 18:21 [address]errals: [facility] [place] (PCP/Family) Primary Care Physician NADIA VALADZE MD, TERRY D MD ZAFUTA, MICHAEL P MD Patient Instructions: HEMATOMA Add. Discharge Instructions: 1. Ice pack to the area. Elevate the hand is much as possible for the next few days. Wear the splint for the next week. Pain medication as directed. If pain persists follow-up with orthopedics. All discharge instructions reviewed with patient and/or family. Voiced understanding. Scripts Hydrocodone/Acetaminophen (Hydrocodone-Acetamin 5-325 mg) 1 Each Tablet 1 TAB PO Q4H PRN for PAIN-MODERATE (5-7), #10 TAB Prov: ARIELLE ARREDONDO APRN 11/09/21 Work/School Note: Work Release Form Date Seen in the Emergency Department: Nov 09, 2021 Return to Work: Nov 16, 2021 ARIELLE ARREDONDO APRN Nov 09, 2021 18:00
[2021-11-09] MEDS ORDERED: ACHD5005 PO (18:22)
--- NOTE | 2021-11-09 19:03 | Diagnostic Imaging Report ---
CLINICAL INDICATION: Patient smashed hand in car door. EXAM: X-ray of the right hand, 3 views. COMPARISON: None. FINDINGS AND IMPRESSION: There is no acute fracture or dislocation. There is soft tissue swelling involving the dorsal aspect of the hand near the metacarpal bone regions. Otherwise, there is no significant bone or joint abnormality. Dictated by: Dictated on workstation # [id number]
== END 2021-11-09 18:36 | disposition home or self-care (01) ==
LOC: EDUNIT# 16:55 → ER 16:58
DX: S60.221A Contusion of right hand, initial encounter (principal); F17.290 Nicotine dependence, other tobacco product, uncomplicated; X50.0XXA Overexertion from strenuous movement or load, initial encounter
CPT/HCPCS: 73130

== ENCOUNTER 2022-04-01 00:17 | Emergency (ER) | payer MEDICAID ==
[~2022-04-01] VITALS: Ht 172.7 cm; Wt 86.0 kg
[2022-04-01 00:29] LABS: BASOPHILS % (AUTO) 0 % (0-10); EOSINOPHILS # (AUTO) 0.1 10^3/uL (0.0-0.3); EOSINOPHILS % (AUTO) 1 % (0-10); HEMATOCRIT 49 % (40-54); HEMOGLOBIN 17.3 g/dL (13.3-17.7); LYMPHOCYTES # (AUTO) 2.5 10^3/uL (1.0-4.0); LYMPHOCYTES % (AUTO) 31 % (12-44); MEAN CORPUSCULAR HEMOGLOBIN 32 pg (25-34); MEAN CORPUSCULAR HGB CONC 35 g/dL (32-36); MEAN CORPUSCULAR VOLUME 92 fL (80-99); MEAN PLATELET VOLUME 9.3 fL (9.0-12.2); MONOCYTES # (AUTO) 0.7 10^3/uL (0.0-1.0); MONOCYTES % (AUTO) 9 % (0-12); NEUTROPHILS # (AUTO) 4.7 10^3/uL (1.8-7.8); NEUTROPHILS % (AUTO) 59 % (42-75); PLATELET COUNT 212 10^3/uL (130-400); WHITE BLOOD COUNT 8.1 10^3/uL (4.3-11.0)
[2022-04-01] MEDS ORDERED: TETANUS,DIPTH,PERTUSS P/F (BOOSTRIX) 0.5 ML VIAL IM ONE (00:30)
[2022-04-01 00:39] LABS: POTASSIUM 3.7 MMOL/L (3.6-5.0)
[2022-04-01 00:40] LABS: CALCIUM 9.4 MG/DL (8.5-10.1)
[2022-04-01 00:45] LABS: CREATININE SERUM 0.99 MG/DL (0.60-1.30)
--- NOTE | 2022-04-01 00:49 | ED Trauma-Multisystem ---
General Chief Complaint: Trauma-Non Activation Stated Complaint: THROAT LAC Nursing Triage Note: TO ED VIA POV AND W/C TO ROOM 5 WITH NECK LAC. 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 PT IS HOLDING TOWEL TO NECK. PT ABLE TO SPEAK AND SWALLOW AND BREATHING WITHOUT DIFFICULTY AT THIS TIME. Source of Information: Patient, Family Exam Limitations: No Limitations History of Present Illness Date Seen by Provider: April 01, 2022 Time Seen by Provider: 00:12 Initial Comments Patient is a 31-year-old male who presents to the emergency department today wit h a chief complaint of neck laceration. Patient states that he was cutting some sheet-metal with a stopper grinder when he slipped and fell onto the stopper grinder. He states this happened about 1 hour prior to arrival. Patient is currently holding a towel to his neck. He is complaining of a hoarse voice. He is not short of breath or nauseous. He states he has a little discomfort with swallowing but other than that is not really in any pain. He does not know when his last tetanus shot was. No other complaints of illness or injury. He has had a significant amount of alcohol this evening. All other review of systems reviewed and negative except as stated. Occurred: Just Prior to Arrival (1 hour) Severity: Mild Pain/Injury Location: Neck Method of Injury: Direct Blow Loss of Consciousness: No Loss of Consciousness Associated Symptoms (Fall): Other (hoarse voice) Allergies and Home Medications Allergies Coded Allergies: No Known Drug Allergies (Unverified , 02/03/17) Patient Home Medication List Home Medication List Reviewed: Yes Acetaminophen with Codeine (Tylenol with Codeine #3 Tablet) 1 Each Tablet, 1 EACH PO TID Prescribed by: NIKOLAS NASCIMENTO on 11/13/19 1514 Clindamycin HCl (Clindamycin HCl) 150 Mg Capsule, 150 MG PO Q6H Prescribed by: MARCOS DESIR on 08/20/21 183 Cyclobenzaprine HCl (Cyclobenzaprine HCl) 10 Mg Tablet, 10 MG PO Q8H Prescribed by: ANDRIA DAWSON on 02/02/17 2249 Doxycycline Hyclate (Doxycycline Hyclate) 100 Mg Tablet, 100 MG PO BID Prescribed by: NIKOLAS NASCIMENTO on 11/13/19 1514 Hydrocodone/Acetaminophen (Hydrocodone-Acetamin 5-325 mg) 1 Each Tablet, 1 TAB PO Q4H PRN for PAIN-MODERATE (5-7) Prescribed by: ARIELLE ARREDONDO on 11/09/21 1823 Ibuprofen (Ibuprofen) 400 Mg Tablet, 400 MG PO Q4H PRN for PAIN Prescribed by: LUCÍA MORALES on 08/10/15 0920 Ibuprofen (Ibuprofen) 800 Mg Tablet, 800 MG PO Q8H PRN for PAIN Prescribed by: MARCOS DESIR on 08/20/21 1834 Naproxen (Naproxen) 500 Mg Tablet, 500 MG PO BID Prescribed by: ANDRIA DAWSON on 02/02/172248 Tramadol HCl (Ultram) 50 Mg Tablet, 50 MG PO Q4H Prescribed by: ANDRIA DAWSON on 02/02/172248 Review of Systems Review of Systems Constitutional: see HPI Eyes: No Symptoms Reported Ears: No Symptoms Reported Nose: No Symptoms Reported Mouth: No Symptoms Reported Throat: Other (neck injury/ hoarse voice) Respiratory: no symptoms reported Cardiovascular: No Symptoms Reported Gastrointestinal: no symptoms reported Skin: other (laceration) All Other Systems Reviewed Negative Unless Noted: Yes Past Dvpdudn-Vwqnal-Bbbwdx Hx Patient Social History Tobacco Use?: Yes Tobacco type used: Cigarettes Smoking Status: Current Everyday Smoker Alcohol Use?: Yes Alcohol Frequency: Daily Immunizations Up To Date Tetanus Booster (TDap): Less than 5yrs PED Vaccines UTD: Yes Seasonal Allergies Seasonal Allergies: No Past Medical History Surgeries: Yes (Sebaceous cyst removed from face, L Knee) Orthopedic Respiratory: No Cardiac: No Neurological: No Reproductive Disorders: No Sexually Transmitted Disease: No HIV/AIDS: No Genitourinary: No Gastrointestinal: No Musculoskeletal: No Endocrine: No HEENT: Yes (Dental decay) Cancer: No Psychosocial: Yes ADD/ADHD Integumentary: No Blood Disorders: No Adverse Reaction/Blood Tranf: No Physical Exam Vital Signs Vital Signs - First Documented Height, Weight, BMI Height: 5'9.00" Weight: 195lbs. 0.0oz. 88.725153mo; 28.00 BMI Method:Stated General Appearance: No Apparent Distress, WD/WN Head: No Evidence of Injury Eyes: Bilateral Eye Normal Inspection, Bilateral Eye PERRL, Bilateral Eye EOMI Ears, Nose, Throat: Hearing Grossly Normal, No Evidence of ENT Injury Neck: Other (patient has large gaping wound to the anterior neck, just above the thyroid cartilage. no active bleeding. platysma appears intact? no pulsatile masses or expanding hematoma noted. swelling to anterior neck - mild. length of lac is about 6cm by 3cm wide (zone 2)) Cardiovascular: Regular Rate, Rhythm Respiratory: Lungs Clear, Normal Breath Sounds, No Accessory Muscle Use, No Respiratory Distress Gastrointestinal: Non Tender, Soft Extremity: Normal Inspection, Normal Range of Motion Neurologic/Psychiatric: Alert, Oriented x3, No Motor/Sensory Deficits, Other (flat affect) Skin: Warm/Dry Procedures/Interventions Suture Size: 6-0 Progress/Results/Core Measures Results/Orders Lab Results Laboratory Tests Test 04/01/22 00:20 Range/Units White Blood Count 8.1 4.3-11.0 10^3/uL Red Blood Count 5.35 4.30-5.52 10^6/uL Hemoglobin 17.3 13.3-17.7 g/dL Hematocrit 49 40-54 % Mean Corpuscular Volume 92 80-99 fL Mean Corpuscular Hemoglobin 32 25-34 pg Mean Corpuscular Hemoglobin Concent 35 32-36 g/dL Red Cell Distribution Width 12.0 10.0-14.5 % Platelet Count 212 130-400 10^3/uL Mean Platelet Volume 9.3 9.0-12.2 fL Immature Granulocyte % (Auto) 0 % Neutrophils (%) (Auto) 59 42-75 % Lymphocytes (%) (Auto) 31 12-44 % Monocytes (%) (Auto) 9 0-12 % Eosinophils (%) (Auto) 1 0-10 % Basophils (%) (Auto) 0 0-10 % Neutrophils # (Auto) 4.7 1.8-7.8 10^3/uL Lymphocytes # (Auto) 2.5 1.0-4.0 10^3/uL Monocytes # (Auto) 0.7 0.0-1.0 10^3/uL Eosinophils # (Auto) 0.1 0.0-0.3 10^3/uL Basophils # (Auto) 0.0 0.0-0.1 10^3/uL Immature Granulocyte # (Auto) 0.0 0.0-0.1 10^3/uL Sodium Level 142 135-145 MMOL/L Potassium Level 3.7 3.6-5.0 MMOL/L Chloride Level 106 98-107 MMOL/L Carbon Dioxide Level 20 L 21-32 MMOL/L Anion Gap 16 H 5-14 MMOL/L Blood Urea Nitrogen 7 7-18 MG/DL Creatinine 0.99 0.60-1.30 MG/DL Estimat Glomerular Filtration Rate 104 BUN/Creatinine Ratio 7 Glucose Level 84 70-105 MG/DL Calcium Level 9.4 8.5-10.1 MG/DL Serum Alcohol 80 H <10 MG/DL My Orders Orders - THERESA CLAUDIO MD Ed Iv/Invasive Line Start (04/01/22 00:22) Cbc With Automated Diff (04/01/22 00:22) Basic Metabolic Panel (04/01/22 00:22) Ct Neck (Soft Tissue) W (04/01/22 00:22) Dipht,Pertuss(Acell),Tet Adult (Boostrix (04/01/22 00:30) Chest 1 View, Ap/Pa Only (04/01/22 00:26) Alcohol (04/01/22 00:38) Iohexol Injection (Omnipaque 350 Mg/Ml 1 (04/01/22 01:00) Sodium Chloride Flush (Catheter Flush Sy (04/01/22 01:00) Ns (Ivpb) (Sodium Chloride 0.9% Ivpb Bag (04/01/22 01:00) Lidocaine 1% Inj 30 Ml (Xylocaine 1% Inj (04/01/22 01:15) Fentanyl Inj (Sublimaze Injection) (04/01/22 02:15) Ns Iv 1000 Ml (Sodium Chloride 0.9%) (04/01/22 02:15) Cefazolin 2 Gm Iv Premixed (Ancef 2 Gm P (04/01/22 02:15) Fentanyl Inj (Sublimaze Injection) (04/01/22 03:15) Medications Given in ED Current Medications Medications Dose Ordered Sig/Vania Route Start Time Stop Time Status Last Admin Dose Admin Cefazolin Sodium/ Dextrose 50 ml @ 100 mls/hr ONCE ONCE IV 04/01/22 02:15 04/01/22 02:44 DC 04/01/22 02:22 100 MLS/HR Diphtheria/ Tetanus/Acell Pertussis 0.5 ml ONCE ONCE IM 04/01/22 00:30 04/01/22 00:31 DC 04/01/22 00:32 0.5 ML Fentanyl Citrate 50 mcg ONCE ONCE IVP 04/01/22 02:15 04/01/22 02:16 DC 04/01/22 02:16 50 MCG Iohexol 100 ml ONCE ONCE IV 04/01/22 01:00 04/01/22 01:01 DC 04/01/22 01:11 75 ML Sodium Chloride 10 ml NEEDED PRN IV 04/01/22 01:00 04/01/22 01:11 10 ML Sodium Chloride 100 ml ONCE ONCE IV 04/01/22 01:00 04/01/22 01:01 DC 04/01/22 01:11 80 ML Vital Signs/I&O 04/01/22 04/01/22 00:18 00:18 Temp 36.7 Pulse 122 Resp 14 B/P (MAP) 131/92 (105) Pulse Ox 97 O2 Delivery Room Air Room Air Blood Pressure Mean: 105 Progress Progress Note #1: Time: 00:57 Progress Note Patient is fairly hostile here in the ED, threatening to boby in CT and cursing about nursing staff. VS remain stable. I spoke with him about possible need to transfer for further ENT evaluation depending on the extent of injury to underlying structures. He said to me "I don't give no consent for transfer." I did attempt to explain that many neck injuries (in this area of the neck) are at high risk for infection and damage to underlying structures that can cause life threatening further injury. he continues to deny any transfer. On further evaluation of the wound - it does not appear that the platysma has been violated - only skin and subcutaneous fat appear to be violated. No obvious penetrating wound through the platysma (wound not aggressively explored). He states that currently he is not having any problems swallowing. Awaiting CT results. Progress Note #2: Time: 01:[address] scan of the neck with contrast obtained, first call made to [facility] direct call, message left awaiting callback. Patient apologizes for behavior previously and states that now that he is "sober" he is hurting. He got up and drank some water from the sink and states "it hurts". Will give him some fentanyl. Progress Note #3: Time: 02:39 Progress Note Case discussed with Dr. Joe Fisher on for ENT. Recommends transfer to [facility], evaluation by trauma with consultation to ENT patient has been given 2g Ancef, Fentanyl and 1 L NS. Saline soaked gauze dressing applied to wound. Diagnostic Imaging Diagonstic Imaging: CT Plain Films/CT/US/NM/MRI: other (Soft tissue neck with IV contrast) Comments CT read per stat rad Skull base and nasopharyngeal soft tissues are normal. The deputy clerk of court and parotid spaces are unremarkable there is air in the deep right neck soft tissues extending anteriorly with laceration near the thyroid cartilage. Subcutaneous emphysema extends down into the lower neck and upper chest. No large hematoma noted. There is gas surrounding the right common carotid artery, the right jugular vein in the right carotid bifurcation, but no extravasation is noted. The contrast present is not of sufficient density to consider this a CTA exam. No definite carotid injury is noted. The larynx is normal. Lung apices are unremarkable. Cervical spine is unremarkable. Diagonstic Imaging: Xray Plain Films/CT/US/NM/MRI: chest Comments CXR: reviewed by me : no pneumothorax. no effusions/infiltrates; normal me diastinum; no bony abnormalities Departure Impression Primary Impression: Trauma of soft tissue of neck Qualified Codes: S19.80XA - Other specified injuries of unspecified part of neck, initial encounter Disposition: 02 XFER SHT-TRM HOSP Condition: Stable Transfer Transfer Reason: Exceeds level of care Time Spoke to Accepting Phy: 02:45 Transfer Progress Notes Discussed with Dr Gonzales (ED); also discussion with Dr Fisher, ENT Transfer Facility: [facility] Method of Transfer: EMS Departure-Patient Inst. Referrals: [facility] (PCP/Family) Primary Care Physician Images Head/Face 1 - wound 6cm in length by 3cm width THERESA CLAUDIO MD April 01, 2022 00:48
[2022-04-01] MEDS ORDERED: CATHETER FLUSH 10 ML SYR IV PRN (01:00)
[2022-04-01] MEDS ORDERED: NS 100 ML (IVPB) BAG IV ONE (01:00)
[2022-04-01] MEDS ORDERED: IOHEXOL 350 MG/ML 100 ML (OMNIPAQUE 350) VIAL IV ONE (01:00)
[2022-04-01] MEDS ORDERED: LIDOCAINE 1% INJ 30 ML (XYLOCAINE) VIAL INJ ONE (01:15)
[2022-04-01] MEDS ORDERED: NS IV 1000 ML 1,000 ML IV SCH (02:15)
[2022-04-01] MEDS ORDERED: ceFAZolin 2 GM IV Premixed 50 ML IV ONE (02:15)
[2022-04-01] MEDS ORDERED: fentaNYL INJ 100 MCG/2 ML AMP IVP ONE ×2 (02:15→03:15)
[2022-04-01 03:34] VITALS: BP 109/79
--- NOTE | 2022-04-01 06:47 | Diagnostic Imaging Report ---
INDICATION: Chest pain. FINDINGS: Portable chest. The lungs are well-aerated and clear. Heart is not enlarged. No hilar adenopathy. No pneumothorax or pleural effusion. No bony abnormalities. IMPRESSION: Normal portable chest. Dictated by: Dictated on workstation # [id number]
--- NOTE | 2022-04-01 07:13 | Diagnostic Imaging Report ---
PROCEDURE: CT neck soft tissue with contrast. TECHNIQUE: Multiple contiguous axial images were obtained through the neck after the administration of contrast. Auto Exposure Controls were utilized during the CT exam to meet ALARA standards for radiation dose reduction. INDICATION: Laceration to the neck. It is compared with a CT neck 08/11/2015. FINDINGS: Soft tissue gas dissects along the right neck peripheral to the right greater than left thyroid cartilage on the right posterior to the cricoarytenoid joint and ventral to the opacified jugular and carotid vascular structures and anterior to the nonfocal right sternocleidomastoid muscle. No retained opaque foreign body. There is no contrast extravasation and no appreciable measurable hematoma. Cervical gas dissects caudally lateral to the right thyroid lobe terminating posterior to the suprasternal notch deep to the right clavicle. No cervical fracture identified. Hyoid bone intact. The tracheal cartilage showed no traumatic deformity. No laryngeal dislocation, fracture or hematoma. The epiglottis and aryepiglottic folds normal. The nasopharynx, oropharynx and hypopharynx all patent and unremarkable. The prevertebral and retropharyngeal spaces appeared normal. No apical pneumothorax. 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 Impression: Soft Tissue gas dissects from the right neck into the deep spaces but no evidence for tracheal or laryngeal injury. No airway embarrassment. No contrast extravasation or appreciable hematoma. No fracture or acute bony pathology. Agree with preliminary. Dictated by: Dictated on workstation # [id number]
== END 2022-04-01 03:40 | disposition short-term general hospital (02) ==
LOC: EDUNIT# 00:17 → ER 00:20
DX: S11.81XA Laceration without foreign body of other specified part of neck, initial encounter (principal); T79.7XXA Traumatic subcutaneous emphysema, initial encounter; F17.210 Nicotine dependence, cigarettes, uncomplicated; Z23 Encounter for immunization; W01.111A Fall on same level from slipping, tripping and stumbling with subsequent striking against power tool or machine, initial encounter
CPT/HCPCS: 70491; 71045; 80048; 85025; 99285; G0480; 36415; 80320; 90715

== ENCOUNTER 2022-06-22 21:21 | Emergency (ER) | payer MEDICAID ==
[~2022-06-22] VITALS: Ht 175 cm; Wt 85.0 kg
[2022-06-22] MEDS ORDERED: ASPIRIN 81 MG CHEW (CHILDREN'S ASA) PO ONE (21:30)
--- NOTE | 2022-06-22 21:42 | ED Chest Pain ---
General Chief Complaint: Chest Pain Stated Complaint: CHEST PAIN History of Present Illness Date Seen by Provider: Jun 22, 2022 Time Seen by Provider: 21:20 Initial Comments 31 year old male presents for chest pain times 1 hour via EMS. Reports to EMS that he took aderal, propranolol and multiple energy drinks. Mild nausea, no vomiting. No hx of CAD. Was given ASA but patient refused and spit it out. Pt denies using an elicit drugs. Timing/Duration: 1 hour Severity/Quality: moderate Location: substernal Radiation: no radiation Activities at Onset: none Prior CP/Workup: no prior chest pain ASA po ELECTION ASSISTANT: No (provided by EMS, spit out) NTG SL ELECTION ASSISTANT: No Associated Symptoms: denies symptoms; No abdominal pain, No fever/chills, No heartburn, No nausea/vomiting, No shortness of breath Allergies and Home Medications Allergies Coded Allergies: No Known Drug Allergies (Unverified , 02/03/17) Patient Home Medication List Home Medication List Reviewed: Yes Acetaminophen with Codeine (Tylenol with Codeine #3 Tablet) 1 Each Tablet, 1 EACH PO TID Prescribed by: NIKOLAS NASCIMENTO on 11/13/19 1514 Clindamycin HCl (Clindamycin HCl) 150 Mg Capsule, 150 MG PO Q6H Prescribed by: MARCOS DESIR on 08/20/21 183 Cyclobenzaprine HCl (Cyclobenzaprine HCl) 10 Mg Tablet, 10 MG PO Q8H Prescribed by: ANDRIA DAWSON on 02/02/17 224 Doxycycline Hyclate (Doxycycline Hyclate) 100 Mg Tablet, 100 MG PO BID Prescribed by: NIKOLAS NASCIMENTO on 11/13/19 1514 Hydrocodone/Acetaminophen (Hydrocodone-Acetamin 5-325 mg) 1 Each Tablet, 1 TAB PO Q4H PRN for PAIN-MODERATE (5-7) Prescribed by: ARIELLE ARREDONDO on 11/09/21 1823 Ibuprofen (Ibuprofen) 400 Mg Tablet, 400 MG PO Q4H PRN for PAIN Prescribed by: LUCÍA MORALES on 08/10/15 0920 Ibuprofen (Ibuprofen) 800 Mg Tablet, 800 MG PO Q8H PRN for PAIN Prescribed by: MARCOS DESIR on 08/20/21 1834 Naproxen (Naproxen) 500 Mg Tablet, 500 MG PO BID Prescribed by: ANDRIA DAWSON on 02/02/172248 Tramadol HCl (Ultram) 50 Mg Tablet, 50 MG PO Q4H Prescribed by: ANDRIA DAWSON on 02/02/172248 Review of Systems Review of Systems Constitutional: no symptoms reported, see HPI Cardiovascular: See HPI, Chest Pain All Other Systems Reviewed Negative Unless Noted: Yes Past Ukphqdu-Yubcdw-Oyjicy Hx Immunizations Up To Date Tetanus Booster (TDap): Less than 5yrs PED Vaccines UTD: Yes Seasonal Allergies Seasonal Allergies: No Past Medical History Surgeries: Yes (Sebaceous cyst removed from face, L Knee) Orthopedic Respiratory: No Cardiac: No Neurological: No Reproductive Disorders: No Sexually Transmitted Disease: No HIV/AIDS: No Genitourinary: No Gastrointestinal: No Musculoskeletal: No Endocrine: No HEENT: Yes (Dental decay) Cancer: No Psychosocial: Yes ADD/ADHD Integumentary: No Blood Disorders: No Adverse Reaction/Blood Tranf: No Family Medical History Reviewed Nursing Family Hx Physical Exam Vital Signs Vital Signs - First Documented 06/22/22 21:24 Temp 37.0 Pulse 84 Resp 16 B/P (MAP) 155/110 (125) Pulse Ox 94 O2 Delivery Room Air Capillary Refill : Height, Weight, BMI Height: 5'9.00" Weight: 195lbs. 0.0oz. 88.065461lf; 28.00 BMI Method:Stated General Appearance: WD/WN, Mild Distress HEENT: PERRL/EOMI, TMs Normal, Normal ENT Inspection, Moist Mucous Membranes Neck: Full Range of Motion, Normal Inspection, Non Tender, Supple Respiratory: Chest Non Tender, Lungs Clear, Normal Breath Sounds Cardiovascular: Regular Rate, Rhythm, No Edema, No Murmur, Normal Peripheral Pulses Gastrointestinal: Normal Bowel Sounds, Non Tender, Soft Extremity: Normal Capillary Refill, Normal Inspection, Normal Range of Motion, No Pedal Edema Neurologic/Psychiatric: Alert, Oriented x3, No Motor/Sensory Deficits, Normal Mood/Affect Skin: Normal Color, Warm/Dry Procedures/Interventions Suture Size: 6-0 Progress/Results/Core Measures Results/Orders Lab Results Laboratory Tests Test 06/22/22 21:43 Range/Units White Blood Count 8.4 4.3-11.0 10^3/uL Red Blood Count 4.49 4.30-5.52 10^6/uL Hemoglobin 14.7 13.3-17.7 g/dL Hematocrit 42 40-54 % Mean Corpuscular Volume 93 80-99 fL Mean Corpuscular Hemoglobin 33 25-34 pg Mean Corpuscular Hemoglobin Concent 35 32-36 g/dL Red Cell Distribution Width 11.7 10.0-14.5 % Platelet Count 202 130-400 10^3/uL Mean Platelet Volume 9.5 9.0-12.2 fL Immature Granulocyte % (Auto) 0 % Neutrophils (%) (Auto) 69 42-75 % Lymphocytes (%) (Auto) 22 12-44 % Monocytes (%) (Auto) 8 0-12 % Eosinophils (%) (Auto) 1 0-10 % Basophils (%) (Auto) 1 0-10 % Neutrophils # (Auto) 5.8 1.8-7.8 10^3/uL Lymphocytes # (Auto) 1.8 1.0-4.0 10^3/uL Monocytes # (Auto) 0.6 0.0-1.0 10^3/uL Eosinophils # (Auto) 0.1 0.0-0.3 10^3/uL Basophils # (Auto) 0.1 0.0-0.1 10^3/uL Immature Granulocyte # (Auto) 0.0 0.0-0.1 10^3/uL Prothrombin Time 14.0 12.2-14.7 SEC INR Comment 1.0 0.8-1.4 Activated Partial Thromboplast Time 31 24-35 SEC Sodium Level 142 135-145 MMOL/L Potassium Level 3.8 3.6-5.0 MMOL/L Chloride Level 104 98-107 MMOL/L Carbon Dioxide Level 26 21-32 MMOL/L Anion Gap 12 5-14 MMOL/L Blood Urea Nitrogen 13 7-18 MG/DL Creatinine 1.22 0.60-1.30 MG/DL Estimat Glomerular Filtration Rate 81 BUN/Creatinine Ratio 11 Glucose Level 116 H 70-105 MG/DL Calcium Level 9.1 8.5-10.1 MG/DL Corrected Calcium 8.9 8.5-10.1 MG/DL Magnesium Level 2.1 1.6-2.4 MG/DL Total Bilirubin 0.6 0.1-1.0 MG/DL Aspartate Amino Transf (AST/SGOT) 12 5-34 U/L Alanine Aminotransferase (ALT/SGPT) 15 0-55 U/L Alkaline Phosphatase 63 40-136 U/L Myoglobin 126.0 H 10.0-92.0 NG/ML Troponin I < 0.028 <0.028 NG/ML C-Reactive Protein High Sensitivity 0.14 0.00-0.50 MG/DL Total Protein 6.6 6.4-8.2 GM/DL Albumin 4.3 3.2-4.5 GM/DL Serum Alcohol < 10 <10 MG/DL My Orders Orders - THANGMARCOS Cbc With Automated Diff (06/22/22 21:) Magnesium (06/22/22:) Chest 1 View, Ap/Pa Only (06/22/22:) Ekg Tracing (06/22/22:) Comprehensive Metabolic Panel (06/22/22:) Myoglobin Serum (06/22/22:) Protime With Inr (06/22/22:) Partial Thromboplastin Time (06/22/22:) O2 (06/22/22:) Monitor-Rhythm Ecg Trace Only (06/22/22:28) Ed Iv/Invasive Line Start (06/22/22 21:28) Troponin I [place] (06/22/22 21:28) Aspirin Chewable Tablet (Baby Aspirin Ch (06/22/22 21:30) Alcohol (06/22/22 21:36) Hs C Reactive Protein (06/22/22 21:36) Drug Screen Stat (Urine) (06/22/22 21:36) Ua Culture If Indicated (06/22/22 21:36) Medications Given in ED Current Medications Medications Dose Ordered Sig/Vania Route Start Time Stop Time Status Last Admin Dose Admin Aspirin 324 mg ONCE ONCE PO 06/22/22 21:30 06/22/22 21:31 DC 06/22/22 21:47 324 MG Vital Signs/I&O 06/22/22 21:24 Temp 37.0 Pulse 84 Resp 16 B/P (MAP) 155/110 (125) Pulse Ox 94 O2 Delivery Room Air Progress Progress Note : Time: 21:20 Progress Note Patient seen and evaluated, will obtain EKG, aspirin 324 mg orally, labs and monitor. 2200 no further chest pain. Reg HR&R, no tachycardia. EKG no ST Elevation. Taking water, has refused to provide urine for UA and UDS. 2245 Labs all WNL, father and sister here. Patient has not provided UA. Requesting discharge to home. Discharge instructions and return precautions reviewed in detail with the patient and his family Initial ECG Impression Date: Jun 22, 2022 Initial ECG Impression Time: 21:34 Initial ECG Rate: 79 Initial ECG Rhythm: Normal Sinus Initial ECG Intervals: Normal Initial ECG Intervals ID 134, QRSD 105, QT 371, QTc 405. [place] P 60, R 55, T 60. Initial ECG Impression: Normal Initial ECG Comparisson: Unchanged Diagnostic Imaging Diagonstic Imaging: Xray Plain Films/CT/US/NM/MRI: chest Comments NAME: [facility]ANN[facility] REC#: [id number] PT STATUS: REG ER : 1990 PHYSICIAN: MARCOS DESIR ADMIT DATE: 06/22/22/ER Draft Date of Exam:06/22/22 CHEST 1 VIEW, AP/PA ONLY INDICATION: Chest pain. EXAMINATION: Portable AP view of the chest was obtained. COMPARISON: 04/01/2022. FINDINGS: Heart size and pulmonary vascularity are within normal limits, and the lungs are clear, bilaterally. IMPRESSION: Unremarkable chest. Dictated on workstation # [id number] Dict: 06/22/222156 Trans: 06/22/222201 [facility] [id number] Interpreted by: CRISTI CIFUENTES MD Electronically signed by: Reviewed: Reviewed by Me Departure Impression Primary Impression: Atypical chest pain Disposition: HOME, SELF-CARE Condition: Improved Departure-Patient Inst. Decision time for Depature: 22:45 Referrals: [facility] – [place] (PCP/Family) Primary Care Physician Patient Instructions: Chest Pain That Is Not Caused by the Heart (DC) Add. Discharge Instructions: Increase water intake, 16 ounces every 2 hours while awake. Avoid taking medication and drinks or other substances that are stimulants at the same time. Do not take energy drinks. Follow-up with your primary care provider if symptoms or not improving or worsen. Return to the emergency department for new, urgent healthcare needs. All discharge instructions reviewed with patient and/or family. Voiced understanding. MARCOS DESIR Jun 22, 2022 21:42
[2022-06-22 21:56] LABS: BASOPHILS # (AUTO) 0.1 10^3/uL (0.0-0.1); BASOPHILS % (AUTO) 1 % (0-10); EOSINOPHILS # (AUTO) 0.1 10^3/uL (0.0-0.3); EOSINOPHILS % (AUTO) 1 % (0-10); HEMATOCRIT 42 % (40-54); HEMOGLOBIN 14.7 g/dL (13.3-17.7); LYMPHOCYTES # (AUTO) 1.8 10^3/uL (1.0-4.0); LYMPHOCYTES % (AUTO) 22 % (12-44); MEAN CORPUSCULAR HEMOGLOBIN 33 pg (25-34); MEAN CORPUSCULAR HGB CONC 35 g/dL (32-36); MEAN CORPUSCULAR VOLUME 93 fL (80-99); MEAN PLATELET VOLUME 9.5 fL (9.0-12.2); MONOCYTES # (AUTO) 0.6 10^3/uL (0.0-1.0); MONOCYTES % (AUTO) 8 % (0-12); NEUTROPHILS # (AUTO) 5.8 10^3/uL (1.8-7.8); NEUTROPHILS % (AUTO) 69 % (42-75); PLATELET COUNT 202 10^3/uL (130-400); WHITE BLOOD COUNT 8.4 10^3/uL (4.3-11.0)
--- NOTE | 2022-06-22 22:02 | Diagnostic Imaging Report ---
INDICATION: Chest pain. EXAMINATION: Portable AP view of the chest was obtained. COMPARISON: 04/01/2022. FINDINGS: Heart size and pulmonary vascularity are within normal limits, and the lungs are clear, bilaterally. IMPRESSION: Unremarkable chest. Dictated by: Dictated on workstation # [id number]
[2022-06-22 22:11] LABS: ALBUMIN 4.3 GM/DL (3.2-4.5); POTASSIUM 3.8 MMOL/L (3.6-5.0)
[2022-06-22 22:12] LABS: CALCIUM 9.1 MG/DL (8.5-10.1)
[2022-06-22 22:14] LABS: TOTAL PROTEIN 6.6 GM/DL (6.4-8.2)
[2022-06-22 22:16] LABS: BILIRUBIN,TOTAL 0.6 MG/DL (0.1-1.0)
[2022-06-22 22:17] LABS: CREATININE SERUM 1.22 MG/DL (0.60-1.30)
[2022-06-22 22:20] LABS: MAGNESIUM 2.1 MG/DL (1.6-2.4)
[2022-06-22 22:57] VITALS: BP 110/98
== END 2022-06-22 22:57 | disposition home or self-care (01) ==
LOC: EDUNIT# 21:21 → ER 21:22
DX: R07.89 Other chest pain (principal)
CPT/HCPCS: 71045; 80053; 83735; 83874; 84484; 85025; 85610; 85730; 86141; 93005; 99283; G0480; 36415; 80320

== ENCOUNTER 2022-06-23 06:33 | Inpatient (IN) | payer MEDICAID ==
[2022-06-23] VITALS (10 sets, daily range): BP systolic 36–121; BP diastolic 32–70
[2022-06-23] MEDS ORDERED: LORazepam INJ 2 MG/ML (ATIVAN) VIAL IVP ONE ×2 (06:42→06:48)
[2022-06-23] MEDS ORDERED: LORazepam INJ 2 MG/ML (ATIVAN) VIAL ONE (06:43)
[2022-06-23] MEDS ORDERED: NS IV 1000 ML 2,000 ML ONE (07:00)
[2022-06-23] MEDS ORDERED: NOREPINEPHRINE 8 MG/250 ML 250 ML IV ONE (07:08)
[2022-06-23] MEDS: NOREPINEPHRINE 8 MG/250 ML 250 ML IV SCH ×3 (07:13→16:35)
[2022-06-23] MEDS ORDERED: NS IV 1000 ML 1,000 ML ONE ×3 (07:15→13:15)
[2022-06-23] MEDS ORDERED: NS IV ONE (07:15)
[2022-06-23 07:25] LABS: BASOPHILS # (AUTO) 0.1 10^3/uL (0.0-0.1); BASOPHILS % (AUTO) 1 % (0-10); EOSINOPHILS # (AUTO) 0.1 10^3/uL (0.0-0.3); EOSINOPHILS % (AUTO) 1 % (0-10); HEMATOCRIT 47 % (40-54); HEMOGLOBIN 15.9 g/dL (13.3-17.7); LYMPHOCYTES # (AUTO) 3.8 10^3/uL (1.0-4.0); LYMPHOCYTES % (AUTO) 39 % (12-44); MEAN CORPUSCULAR HEMOGLOBIN 32 pg (25-34); MEAN CORPUSCULAR HGB CONC 34 g/dL (32-36); MEAN CORPUSCULAR VOLUME 95 fL (80-99); MEAN PLATELET VOLUME 10.4 fL (9.0-12.2); MONOCYTES # (AUTO) 0.4 10^3/uL (0.0-1.0); MONOCYTES % (AUTO) 4 % (0-12); NEUTROPHILS # (AUTO) 5.4 10^3/uL (1.8-7.8); NEUTROPHILS % (AUTO) 55 % (42-75); PLATELET COUNT 238 10^3/uL (130-400); WHITE BLOOD COUNT 9.8 10^3/uL (4.3-11.0)
[2022-06-23 07:26] LABS: BILIRUBIN,URINE NEGATIVE (NEGATIVE); CLARITY,URINE CLEAR; COLOR,URINE YELLOW; GLUCOSE, URINE (UA) NEGATIVE (NEGATIVE); KETONES,URINE NEGATIVE (NEGATIVE); LEUKOCYTE ESTERASE ,URINE NEGATIVE (NEGATIVE); NITRITE,URINE NEGATIVE (NEGATIVE); PROTEIN,URINE TRACE (NEGATIVE)
[2022-06-23 07:28] LABS: ALBUMIN 4.7 GM/DL (3.2-4.5)
[2022-06-23 07:29] LABS: CHLORIDE 104 MMOL/L (98-107); POTASSIUM 5.4 MMOL/L (3.6-5.0); SODIUM 145 MMOL/L (135-145)
[2022-06-23 07:30] LABS: CALCIUM 9.7 MG/DL (8.5-10.1)
[2022-06-23 07:31] LABS: GLUCOSE 91 MG/DL (70-105); TOTAL PROTEIN 7.3 GM/DL (6.4-8.2)
[2022-06-23 07:32] LABS: CARBON DIOXIDE 14 MMOL/L (21-32)
[2022-06-23 07:33] LABS: BILIRUBIN,TOTAL 0.7 MG/DL (0.1-1.0)
[2022-06-23 07:35] LABS: ALKALINE PHOSPHATASE 68 U/L (40-136); CREATININE SERUM 1.96 MG/DL (0.60-1.30); GFR ESTIMATED 46
[2022-06-23 07:36] LABS: BUN/CREATININE RATIO 7
[2022-06-23 07:38] LABS: ALANINE AMINOTRANSFERASE 16 U/L (0-55); CREATINE KINASE 479 U/L (30-200)
--- NOTE | 2022-06-23 07:38 | ED General ---
General Stated Complaint: TREMORS Source of Information: EMS Exam Limitations: Physical Impairments History of Present Illness Date Seen by Provider: Jun 23, 2022 Time Seen by Provider: 06:35 Initial Comments Eloy is a 31-year-old male brought to the emergency room by EMS chief complaint of shaking and altered mental status. Reportedly the patient had been in the emergency department earlier in the evening with chief complaint of chest pain. I have not had an opportunity to review this medical record however it was communicated to me by nursing staff that the patient was discharged and ambulatory from the department. EMS was called again for tremors at home and found poorly responsive in the bathroom. It was not until I had a chance to speak to his dad at approximately 750 that he reports that Eloy has a history of "heart problems". He supposed to be on 2 different medications and the father is not aware of what these are. He gets them filled at [facility]. He drinks a lot of "energy drinks". After his dismissal from the ED late last night he went home and drank a bunch of soda. He told his dad that he was still having chest pain. Dad heard him fall in the bathroom and found him tremoring on the floor. On arrival the patient is profusely diaphoretic, unresponsive to painful stimuli. Muscles are all "rigid". He is quite hypertensive and tachycardic in the 170s. Satting 92% on facemask oxygen at 10 L. On patient arrival family was not present for any further HPI. It was decided rather urgently to intubate him for airway protection for suspicion of malignant hyperthermia/neuroleptic malignant syndrome as he is tachycardic, hypertensive in the 200 range and febrile at 106. Timing/Duration: Other (unknown) Severity: Severe Allergies and Home Medications Allergies Coded Allergies: No Known Drug Allergies (Unverified , 02/03/17) Patient Home Medication List Home Medication List Reviewed: Yes Acetaminophen with Codeine (Tylenol with Codeine #3 Tablet) 1 Each Tablet, 1 EACH PO TID Prescribed by: NIKOLAS NASCIMENTO on 11/13/19 1514 Clindamycin HCl (Clindamycin HCl) 150 Mg Capsule, 150 MG PO Q6H Prescribed by: MARCOS DESIR on 08/20/21 1834 Cyclobenzaprine HCl (Cyclobenzaprine HCl) 10 Mg Tablet, 10 MG PO Q8H Prescribed by: ANDRIA DAWSON on 02/02/172248 Doxycycline Hyclate (Doxycycline Hyclate) 100 Mg Tablet, 100 MG PO BID Prescribed by: NIKOLAS NASCIMENTO on 11/13/19 1514 Hydrocodone/Acetaminophen (Hydrocodone-Acetamin 5-325 mg) 1 Each Tablet, 1 TAB PO Q4H PRN for PAIN-MODERATE (5-7) Prescribed by: ARIELLE ARREDONDO on 11/09/21 1823 Ibuprofen (Ibuprofen) 400 Mg Tablet, 400 MG PO Q4H PRN for PAIN Prescribed by: LUCÍA MORALES on 08/10/15 0920 Ibuprofen (Ibuprofen) 800 Mg Tablet, 800 MG PO Q8H PRN for PAIN Prescribed by: MARCOS DESIR on 08/20/21 183 Naproxen (Naproxen) 500 Mg Tablet, 500 MG PO BID Prescribed by: ANDRIA DAWSON on 02/02/172248 Tramadol HCl (Ultram) 50 Mg Tablet, 50 MG PO Q4H Prescribed by: ANDRIA DAWSON on 02/02/172248 Review of Systems Review of Systems Constitutional: see HPI Unable to obtain HPI, review of systems, past medical family or social history due to the patient's physical condition/extremis Past Kxyvmsc-Kpfviv-[id number] Hx Immunizations Up To Date Tetanus Booster (TDap): Less than 5yrs PED Vaccines UTD: Yes Seasonal Allergies Seasonal Allergies: No Past Medical History Surgeries: Yes (Sebaceous cyst removed from face, L Knee) Orthopedic Respiratory: No Cardiac: No Neurological: No Reproductive Disorders: No Sexually Transmitted Disease: No HIV/AIDS: No Genitourinary: No Gastrointestinal: No Musculoskeletal: No Endocrine: No HEENT: Yes (Dental decay) Cancer: No Psychosocial: Yes ADD/ADHD Integumentary: No Blood Disorders: No Adverse Reaction/Blood Tranf: No Physical Exam Vital Signs Vital Signs - First Documented 06/23/22 06/23/22 06:50 07:02 O2 Flow Rate 15.00 FiO2 100 Capillary Refill : Height, Weight, BMI Height: 5'9.00" Weight: 195lbs. 0.0oz. 88.103607dx; 27.00 BMI Method:Stated General Appearance: Severe Distress, Thin Eyes: Bilateral Eye Normal Inspection, Bilateral Eye PERRL (Pupils 5 mm and reactive bilateral) HEENT: PERRL/EOMI, Other (Clenched teeth, poor dentition) Neck: Normal Inspection, Other (Healing scar midline over the thyroid cartilage) Respiratory: Lungs Clear, Normal Breath Sounds, No Accessory Muscle Use, No Respiratory Distress, Other (Rapid shallow breathing) Cardiovascular: Regular Rate, Rhythm, Normal Peripheral Pulses, Tachycardia Gastrointestinal: Abnormal Bowel Sounds (Hypoactive), Other (Nondistended) Extremity: Normal Inspection, Other (Rigid extremities) Neurologic/Psychiatric: Other (Unresponsive to painful stimuli, eyes closed, nonverbal) Skin: Other (Warm and profusely diaphoretic) Focused Exam Lactate Level Lactic Acid Level Laboratory Tests Test 06/23/22 07:36 Lactic Acid Level 6.99 MMOL/L (0.50-2.00) *H Procedures/Interventions Lumen: triple Central Line Procedure: betadine prep, sterile drapes applied, sterile dressing applied Position: femoral (R) Anesthesia: Lidocaine Volume Anesthetic (ccs): 3 Complications: none Post Position: sutured, good blood return IV : Location: Right Site: Internal Jugular IV Catheter Type: IV Catheter Gauge: 16 Reason for Intubation: GCS3 Date of ETT Placement: Jun 23, 2022 Time of ETT Placement: 07:02 Intubation Method: orotracheal Tube Size: 7.5 Medications: Etomidate, Rocuronium Positive End Tide CO2: Yes Breath Sounds after Intubation: bilateral-equal Intubation Complications: no complications Post Intubation Xray: Yes Initial xray shows tube very high; advanced 3cm; good equal BS after advanc Suture Size: 6-0 Progress/Results/Core Measures Suspected Sepsis SIRS Temperature: Pulse: Respiratory Rate: Blood Pressure / Mean: Laboratory Tests 06/23/22 06:50: Creatinine 1.96H, INR Comment 1.1, Total Bilirubin 0.7 Results/Orders Lab Results Laboratory Tests Test 06/23/22 06:50 06/23/22 06:59 06/23/22 07:29 06/23/22 07:36 Range/Units White Blood Count 9.8 4.3-11.0 10^3/uL Red Blood Count 4.93 4.30-5.52 10^6/uL Hemoglobin 15.9 13.3-17.7 g/dL Hematocrit 47 40-54 % Mean Corpuscular Volume 95 80-99 fL Mean Corpuscular Hemoglobin 32 25-34 pg Mean Corpuscular Hemoglobin Concent 34 32-36 g/dL Red Cell Distribution Width 11.7 10.0-14.5 % Platelet Count 238 130-400 10^3/uL Mean Platelet Volume 10.4 9.0-12.2 fL Immature Granulocyte % (Auto) 1 % Neutrophils (%) (Auto) 55 42-75 % Lymphocytes (%) (Auto) 39 12-44 % Monocytes (%) (Auto) 4 0-12 % Eosinophils (%) (Auto) 1 0-10 % Basophils (%) (Auto) 1 0-10 % Neutrophils # (Auto) 5.4 1.8-7.8 10^3/uL Lymphocytes # (Auto) 3.8 1.0-4.0 10^3/uL Monocytes # (Auto) 0.4 0.0-1.0 10^3/uL Eosinophils # (Auto) 0.1 0.0-0.3 10^3/uL Basophils # (Auto) 0.1 0.0-0.1 10^3/uL Immature Granulocyte # (Auto) 0.1 0.0-0.1 10^3/uL Prothrombin Time 14.2 12.2-14.7 SEC INR Comment 1.1 0.8-1.4 Activated Partial Thromboplast Time 24 24-35 SEC Sodium Level 145 135-145 MMOL/L Potassium Level 5.4 H 3.6-5.0 MMOL/L Chloride Level 104 98-107 MMOL/L Carbon Dioxide Level 14 L 21-32 MMOL/L Anion Gap 27 H 5-14 MMOL/L Blood Urea Nitrogen 14 7-18 MG/DL Creatinine 1.96 H 0.60-1.30 MG/DL Estimat Glomerular Filtration Rate 46 BUN/Creatinine Ratio 7 Glucose Level 91 70-105 MG/DL Glucometer 88 70-110 MG/DL Calcium Level 9.7 8.5-10.1 MG/DL Corrected Calcium 8.5-10.1 MG/DL Total Bilirubin 0.7 0.1-1.0 MG/DL Aspartate Amino Transf (AST/SGOT) 18 5-34 U/L Alanine Aminotransferase (ALT/SGPT) 16 0-55 U/L Alkaline Phosphatase 68 40-136 U/L Total Creatine Kinase 479 H 30-200 U/L Troponin I 0.031 H <0.028 NG/ML Total Protein 7.3 6.4-8.2 GM/DL Albumin 4.7 H 3.2-4.5 GM/DL Thyroid Stimulating Hormone (TSH) 1.23 0.35-4.94 UIU/ML Salicylates Level < 5.0 L 5.0-20.0 MG/DL Acetaminophen Level < 10 L 10-30 UG/ML Serum Alcohol < 10 <10 MG/DL Urine Color YELLOW Urine Clarity CLEAR Urine pH 7.0 5-9 Urine Specific [place] 1.020 1.016-1.022 Urine Protein TRACE H NEGATIVE Urine Glucose (UA) NEGATIVE NEGATIVE Urine Ketones NEGATIVE NEGATIVE Urine Nitrite NEGATIVE NEGATIVE Urine Bilirubin NEGATIVE NEGATIVE Urine Urobilinogen 1.0 < = 1.0 MG/DL Urine Leukocyte Esterase NEGATIVE NEGATIVE Urine RBC (Auto) NEGATIVE NEGATIVE Urine RBC 0-2 /HPF Urine WBC 5-10 H /HPF Urine Crystals NONE /LPF Urine Bacteria FEW H /HPF Urine Casts NONE /LPF Urine Mucus NEGATIVE /LPF Urine Other MOD SPERM H /HPF Urine Culture Indicated CULTURE PENDING Urine Opiates Screen NEGATIVE NEGATIVE Urine Oxycodone Screen NEGATIVE NEGATIVE Urine Methadone Screen NEGATIVE NEGATIVE Urine Propoxyphene Screen NEGATIVE NEGATIVE Urine Barbiturates Screen NEGATIVE NEGATIVE Ur Tricyclic Antidepressants Screen NEGATIVE NEGATIVE Urine Phencyclidine Screen NEGATIVE NEGATIVE Urine Amphetamines Screen POSITIVE H NEGATIVE Urine Methamphetamines Screen POSITIVE H NEGATIVE Urine Benzodiazepines Screen POSITIVE H NEGATIVE Urine Cocaine Screen NEGATIVE NEGATIVE Urine Cannabinoids Screen NEGATIVE NEGATIVE Blood Gas Puncture Site LBRACH Blood Gas Patient Temperature 41.9 Arterial Blood pH 7.25 *L 7.37-7.43 Arterial Blood Partial Pressure CO2 55 H 35-45 MMHG Arterial Blood Partial Pressure O2 40 L 79-93 MMHG Arterial Blood HCO3 23 23-27 MMOL/L Arterial Blood Total CO2 24.0 21.0-31.0 MMOL/L Arterial Blood Oxygen Saturation 48 L 94-100 % Arterial Blood Base Excess -4.0 L -2.5-2.5 MMOL/L Mike Test YES-POS Blood Gas Ventilator Setting YES Blood Gas Inspired Oxygen 100% Lactic Acid Level 6.99 *H 0.50-2.00 MMOL/L Influenza Type A (RT-PCR) Not Detected Not Detecte Influenza Type B (RT-PCR) Not Detected Not Detecte SARS-CoV-2 RNA (RT-PCR) Not Detected Not Detecte Micro Results Microbiology 06/23/22 Blood Culture - Preliminary, Resulted No growth 06/23/22 Blood Culture - Preliminary, Resulted No growth 06/23/22 Gram Stain - Final, Resulted 06/23/22 Sputum Culture, Resulted Pending My Orders Orders - THERESA CLAUDIO MD Lorazepam Injection (Ativan Injection) (06/23/22 06:43) Ns Iv 1000 Ml (Sodium Chloride 0.9%) (06/23/22 07:00) Norepinephrine 8 Mg/250 Ml (Norepinephri (06/23/22 07:15) Norepinephrine 8 Mg/250 Ml (Norepinephri (06/23/22 07:08) Cbc With Automated Diff (06/23/22 07:14) Comprehensive Metabolic Panel (06/23/22 07:14) Blood Culture (06/23/22 07:14) Sputum Culture (06/23/22 07:14) Urinalysis (06/23/22 07:14) Urine Culture (06/23/22 07:14) Protime With Inr (06/23/22 07:14) Partial Thromboplastin Time (06/23/22 07:14) Chest 1 View, Ap/Pa Only (06/23/22 07:14) Ed Iv/Invasive Line Start (06/23/22 07:14) Ed Iv/Invasive Line Start (06/23/22 07:14) Ekg Tracing (06/23/22 07:14) Troponin I Tesfaye (06/23/22 07:14) Vital Signs Adult Sepsis Patie Q15M (06/23/22 07:14) O2 (06/23/22 07:14) Remove Rings In Anticipation O (06/23/22 07:14) Lactic Acid Analyzer (06/23/22 07:14) Ns Iv 1000 Ml (Sodium Chloride 0.9%) (06/23/22 07:15) Creatine Kinase (06/23/22 07:14) Ns Iv 1000 Ml (Sodium Chloride 0.9%) (06/23/22 07:15) Covid 19 Inhouse Test (06/23/22 07:21) Influenza A And B By Pcr (06/23/22 07:21) Isolation Central Supply Req (06/23/22 07:21) Arterial Blood Gas (06/23/22 07:29) Drug Screen Stat (Urine) (06/23/22 07:30) Acetaminophen (06/23/22 07:37) Salicylate (06/23/22 07:37) Alcohol (06/23/22 07:37) Thyroid Stimulating Hormone (06/23/22 07:37) Midazolam Injection (Versed Injection) (06/23/22 07:45) Midazolam Drip Pre-Mix (Midazolam Drip P (06/23/22 07:45) Midazolam Injection (Versed Injection) (06/23/22 08:00) Lorazepam Injection (Ativan Injection) (06/23/22 06:42) Lorazepam Injection (Ativan Injection) (06/23/22 06:48) Lucas Cath (06/23/22 08:04) Accucheck Stat ONCE (06/23/22 08:07) Ct Head Wo (06/23/22 08:08) Og Tube Insertion (06/23/22 08:10) Chest 1 View, Ap/Pa Only (06/23/22 08:13) Ventilator Settings Order (06/23/22 07:35) Medications Given in ED Vital Signs/I&O 06/23/22 06/23/22 06/23/22 06/23/22 06:34 06:34 06:50 07:02 Temp 43.0 Pulse 16 168 Resp 40 28 B/P (MAP) 193/183 (186) Pulse Ox 91 100 O2 Delivery Room Air Room Air OxyMask O2 Flow Rate 15.00 FiO2 100 06/23/22 06/23/22 06/23/22 06/23/22 07:02 07:13 07:35 08:09 Temp 43.2 Pulse 161 172 176 Resp 28 36 B/P (MAP) 53/23 98/57 Pulse Ox 98 FiO2 60 Capillary Refill : Progress Note #1: Time: 08:18 Progress Note Patient still Hyperthermix at 41.1 rectal temp; tachy 160's in levophed; Versed drip; diaphoretic; Progress Note #2: Time: 11:36 Progress Note asked by eICU to hang antibiotics and perform LP. Attempt made - unsuccessful. noted that patient developed a LARGE right groin hematoma in the area of right femoral central line - this was pulled. direct manual pressure held. right IJ placed successfully - no complications. Patient noted to have blood in NG as well as oropharynx and at previous stick sites. Will start some vaso and start weaning levo as this may be contributing to the tachycardia - dantrolene has been pushed (just prior to hematoma formation in right groin) he has had decrease by 1-2 degrees in temp and HR is down to 150. Anesthesia coming to do LP - noted petechiae bilateral feet - RLE is a dusky purple color - still has pulse in right foot. He overall looks more pale now. Diagnostic Imaging Diagonstic Imaging: Xray Plain Films/CT/US/NM/MRI: chest Comments [facility]. [place], [place] NAME: ELOY BROWNE [facility] REC#: [id number] PT STATUS: REG ER : 1990 PHYSICIAN: THERESA CLAUDIO MD ADMIT DATE: 06/23/22/ER Draft Date of Exam:06/23/22 CHEST 1 VIEW, AP/PA ONLY INDICATION: POST INTUBATION. TECHNIQUE: Single view chest 7:45 AM. CORRELATION STUDY: 06/22/2022 FINDINGS: The tip of the endotracheal tube is barely visualized at the superior aspect of the film, appearing at thoracic inlet. This is slightly greater than 11 cm above the level of the bennett and should be advanced approximately 6 to 7 cm. Heart size and mediastinum are generally stable with vasculature appearing increased from prior. Scattered somewhat reticulonodular opacities are noted within both lung oswald. IMPRESSION: 1. Interval intubation. Endotracheal tube tip is only at level of the thoracic inlet and should be advanced at least 6 to 7 cm positioning into the lower trachea. 2. Bilateral somewhat prominent reticulonodular opacities within both lung oswald, currently nonspecific. May be reflective of atypical pneumonitis or asymmetric edema. Followup imaging is recommended. Dictated on workstation # [id number] Dict: 06/23/22 [id number] Trans: 06/23/22 0811 CV [id number] Interpreted by: HOWIE ESPINOZA DO Electronically signed by: Critical Care Note Critical Care Start Time: 06:35 Stop Time: 08:36 Total Time (minutes) 90 minutes critical care time in the evaluation and management of this 31-year-old with suspicion for neuroleptic malignant syndrome. Time includes initial evaluation, review of the medical record, ongoing resuscitative efforts with IV fluids, pressors, temperature management, management of electrolytes and abnormal laboratory function, oxygenation. Discussion with family members, discussion with school bus technician, discussion with admitting provider, multiple reevaluations. Time does not include that of procedures including intubation and central line placement. Departure Communication (Admissions) Time/Spoke to Admitting Phy: 08:[address] Bermudez Time/Spoke to Consulting Phy: 08:29 discussed with eICU doc - christopher Diaz 100 Impression Primary Impression: Neuroleptic malignant syndrome Disposition: ADMITTED INPATIENT Condition: Critical Admissions Decision to Admit Reason: Admit from ER (General) Decision to Admit/Date: Jun 23, 2022 Time/Decision to Admit Time: 07:38 Departure-Patient Inst. Referrals: [facility] [place] (PCP/Family) Primary Care Physician THERESA CLAUDIO MD Jun 23, 2022 07:38
[2022-06-23 07:43] LABS: ABG PCO2 55 MMHG (35-45); ABG PO2 40 MMHG (79-93)
[2022-06-23 07:44] LABS: ALLENS TEST YES-POS; INSPIRED O2 100%; PATIENT TEMP 41.9; VENTILATOR YES
[2022-06-23] MEDS ORDERED: MIDAZOLAM 5 MG/5 ML (VERSED) VIAL IVP ONE (07:45)
[2022-06-23] MEDS ORDERED: MIDAZOLAM DRIP PRE-MIX 100 ML IV SCH (07:45)
[2022-06-23 07:46] LABS: ABG OXYGEN SATURATION 48 % (94-100); ABG PH 7.25 (7.37-7.43)
[2022-06-23 07:47] LABS: RBC,URINE 0-2 /HPF
[2022-06-23 07:48] LABS: URINE OTHER MOD SPERM /HPF
[2022-06-23 07:49] LABS: BACTERIA,URINE FEW /HPF
[2022-06-23] MEDS ORDERED: MIDAZOLAM 2 MG/2 ML (VERSED) VIAL IVP ONE (08:00)
[2022-06-23 08:05] LABS: SALICYLATE < 5.0 MG/DL (5.0-20.0)
[2022-06-23 08:08] LABS: AMPHETAMINE SCREEN, URINE POSITIVE (NEGATIVE); BARBITURATE SCREEN URINE NEGATIVE (NEGATIVE); BENZODIAZEPINES SCREEN URINE POSITIVE (NEGATIVE); CANNABINOID SCREEN, URINE NEGATIVE (NEGATIVE); COCAINE SCREEN URINE NEGATIVE (NEGATIVE); METHADONE STAT NEGATIVE (NEGATIVE); OPIATE SCREEN URINE NEGATIVE (NEGATIVE); OXYCODONE STAT NEGATIVE (NEGATIVE); PROPOXYPHENE STAT NEGATIVE (NEGATIVE); TRICYCLIC ANTIDEPRESSANTS SCRE NEGATIVE (NEGATIVE)
--- NOTE | 2022-06-23 08:11 | Diagnostic Imaging Report ---
INDICATION: POST INTUBATION. TECHNIQUE: Single view chest 7:45 AM. CORRELATION STUDY: 06/22/2022 FINDINGS: The tip of the endotracheal tube is barely visualized at the superior aspect of the film, appearing at thoracic inlet. This is slightly greater than 11 cm above the level of the bennett and should be advanced approximately 6 to 7 cm. Heart size and mediastinum are generally stable with vasculature appearing increased from prior. Scattered somewhat reticulonodular opacities are noted within both lung oswald. IMPRESSION: 1. Interval intubation. Endotracheal tube tip is only at level of the thoracic inlet and should be advanced at least 6 to 7 cm positioning into the lower trachea. 2. Bilateral somewhat prominent reticulonodular opacities within both lung oswald, currently nonspecific. May be reflective of atypical pneumonitis or asymmetric edema. Followup imaging is recommended. Dictated by: Dictated on workstation # [id number]
[2022-06-23 08:12] LABS: INR 1.1 (0.8-1.4); PROTHROMBIN TIME PATIENT 14.2 SEC (12.2-14.7)
[2022-06-23 08:19] LABS: ACETAMINOPHEN < 10 UG/ML (10-30)
--- NOTE | 2022-06-23 08:20 | Diagnostic Imaging Report ---
Indication: OG tube placement and ET tube placement. Time of Exam: 7:55 AM Correlation is made with prior chest earlier same day. ET tube has been advanced, has the tip now projected below the clavicular heads and above the bennett. OG tube passes below the diaphragm. Bilateral lung opacities are stable. There is no effusion or pneumothorax. Impression: ET tube repositioning and placement of OG tube, as described. Dictated by: Dictated on workstation # [id number]
[2022-06-23] MEDS ORDERED: HYDROCORTISONE 100 MG/2 ML (Solu-CORTEF) VIAL IV ONE (08:30)
[2022-06-23] MEDS ORDERED: NS IV 1000 ML 1,000 ML IV STA (08:31)
[2022-06-23] MEDS ORDERED: fentaNYL INJ 100 MCG/2 ML AMP ONE (08:59)
[2022-06-23] MEDS ORDERED: fentaNYL INJ 100 MCG/2 ML AMP IVP ONE ×2 (09:00→09:15)
[2022-06-23] MEDS ORDERED: ACETAMINOPHEN 650 MG SUPP (TYLENOL) PR ONE (09:15)
[2022-06-23] MEDS ORDERED: fentaNYL DRIP PRE-MIX 250 ML IV SCH (09:15)
[2022-06-23] MEDS ORDERED: cefTRIAXone 2,000 MG in NS (IVPB) 50 ML IV ONE (09:45)
[2022-06-23] MEDS ORDERED: VANCOMYCIN INJECTION 1,000 MG in NS (IVPB) 250 ML IV ONE (09:45)
[2022-06-23] MEDS ORDERED: DANTROLENE 20 MG IV ONE ×5 (09:45→15:30)
[2022-06-23] MEDS ORDERED: ROCURONIUM 10 MG/ML 5 ML SYRINGE IV ONE ×2 (09:45→13:42)
[2022-06-23] MEDS ORDERED: ROCURONIUM 50 MG/5 ML (ZEMURON) VIAL IV ONE (10:23)
--- NOTE | 2022-06-23 11:25 | Diagnostic Imaging Report ---
Indication: Central line placement. Time of Exam: 11:02 AM Correlation is made prior study earlier same day. ET tube has tip just above the bennett. NG tube passes below the diaphragm. Proximal side-port of NG tube is located in the distal esophagus and the NG tube could be advanced. Right-sided line has tip overlying the SVC. Lungs are clear. There is no pneumothorax. Impression: 1. Right IJ line placement without evidence of pneumothorax. 2. ET tube and NG tube locations, as described. Dictated by: Dictated on workstation # [id number]
[2022-06-23] MEDS ORDERED: NS IV 500 ML 500 ML IV SCH (11:45)
[2022-06-23 12:11] LABS: BASOPHILS # (AUTO) 0.1 10^3/uL (0.0-0.1); BASOPHILS % (AUTO) 1 % (0-10); EOSINOPHILS # (AUTO) 0.1 10^3/uL (0.0-0.3); EOSINOPHILS % (AUTO) 1 % (0-10); HEMATOCRIT 49 % (40-54); HEMOGLOBIN 16.7 g/dL (13.3-17.7); LYMPHOCYTES # (AUTO) 4.7 10^3/uL (1.0-4.0); LYMPHOCYTES % (AUTO) 46 % (12-44); MEAN CORPUSCULAR HEMOGLOBIN 32 pg (25-34); MEAN CORPUSCULAR HGB CONC 34 g/dL (32-36); MEAN CORPUSCULAR VOLUME 94 fL (80-99); MONOCYTES % (AUTO) 10 % (0-12); NEUTROPHILS # (AUTO) 3.7 10^3/uL (1.8-7.8); NEUTROPHILS % (AUTO) 36 % (42-75); WHITE BLOOD COUNT 10.1 10^3/uL (4.3-11.0)
--- NOTE | 2022-06-23 12:11 | History & Physical ---
HPI History of Present Illness: Pt initially seen in ER, no family available at that time. Per ER report, he was hyperthermic, rigid, hypertensive and unresponsive on admit. At the time of my initial exam, he was intubated, muscles relaxed, on Versed drip and had received Dantrolene with improvement in temperature. He was bleeding from the previous femoral arterial line site that had started oozing and been removed. Coags were ordered and pending at that time. He was seen in the ER last night with atypical chest pain which resolved, had nml EKG and vitals and labs and troponin negative and requested d/c. Pt seen again at about 1600, having severe persistent hypotension in spite of 3 pressors. Still having some bleeding from his former femoral line site, heart rate in 170s. Now with evidence of DIC on labs and developing worsening acute renal failure with worsening hyperkalemia. He is off of Versed, but is unresponsive even to pain. Able to obtain some history from father later in the day who reported Eloy went to a carnival last night then to someone's home where they were drinking, and possibly doing other things but he doesn't know what and states Eloy does not normally use substances or drink, but he is concerned he got something because he drank some tea there which Eloy told his 8 yo son not to drink, reportedly due to concern about the safety of it. Source: family Exam Limitations: clinical condition Date seen by provider: Jun 23, 2022 Time Seen by Provider: 11:50 Attending Physician [facility] PCP Admitting Physician: Attending Physician: Consult Date of Admission Home Medications Home Medications Reviewed patient Home Medication Reconciliation performed by pharmacy medication reconciliations electronic organ technician and/or nursing. Patients Allergies have been reviewed. Allergies Coded Allergies: No Known Drug Allergies (Unverified , 02/03/17) YSH-Skkueu-Abbmol Hx Patient Social History 2nd Hand Smoke Exposure: Yes Recent Hopitalizations: No Immunizations Up To Date Tetanus Booster (TDap): Less than 5yrs Past Medical History PMHx: ADHD HTN Family Medical History Significant Family History: Heart Disease Review of Systems ([facility]) Constitutional: other (unable to obtain) Reviewed Test Results Reviewed Test Results Lab Laboratory Tests Test 06/23/22 06:50 06/23/22 06:59 06/23/22 07:06/23/22 07:36 Range/Units White Blood Count 9.8 4.3-11.0 10^3/uL Red Blood Count 4.93 4.30-5.52 10^6/uL Hemoglobin 15.9 13.3-17.7 g/dL Hematocrit 47 40-54 % Mean Corpuscular Volume 95 80-99 fL Mean Corpuscular Hemoglobin 32 25-34 pg Mean Corpuscular Hemoglobin Concent 34 32-36 g/dL Red Cell Distribution Width 11.7 10.0-14.5 % Platelet Count 238 130-400 10^3/uL Mean Platelet Volume 10.4 9.0-12.2 fL Immature Granulocyte % (Auto) 1 % Neutrophils (%) (Auto) 55 42-75 % Lymphocytes (%) (Auto) 39 12-44 % Monocytes (%) (Auto) 4 0-12 % Eosinophils (%) (Auto) 1 0-10 % Basophils (%) (Auto) 1 0-10 % Neutrophils # (Auto) 5.4 1.8-7.8 10^3/uL Lymphocytes # (Auto) 3.8 1.0-4.0 10^3/uL Monocytes # (Auto) 0.4 0.0-1.0 10^3/uL Eosinophils # (Auto) 0.1 0.0-0.3 10^3/uL Basophils # (Auto) 0.1 0.0-0.1 10^3/uL Immature Granulocyte # (Auto) 0.1 0.0-0.1 10^3/uL Prothrombin Time 14.2 12.2-14.7 SEC INR Comment 1.1 0.8-1.4 Activated Partial Thromboplast Time 24 24-35 SEC Sodium Level 145 135-145 MMOL/L Potassium Level 5.4 H 3.6-5.0 MMOL/L Chloride Level 104 98-107 MMOL/L Carbon Dioxide Level 14 L 21-32 MMOL/L Anion Gap 27 H 5-14 MMOL/L Blood Urea Nitrogen 14 7-18 MG/DL Creatinine 1.96 H 0.60-1.30 MG/DL Estimat Glomerular Filtration Rate 46 BUN/Creatinine Ratio 7 Glucose Level 91 70-105 MG/DL Glucometer 88 70-110 MG/DL Calcium Level 9.7 8.5-10.1 MG/DL Corrected Calcium 8.5-10.1 MG/DL Total Bilirubin 0.7 0.1-1.0 MG/DL Aspartate Amino Transf (AST/SGOT) 18 5-34 U/L Alanine Aminotransferase (ALT/SGPT) 16 0-55 U/L Alkaline Phosphatase 68 40-136 U/L Total Creatine Kinase 479 H 30-200 U/L Troponin I 0.031 H <0.028 NG/ML Total Protein 7.3 6.4-8.2 GM/DL Albumin 4.7 H 3.2-4.5 GM/DL Thyroid Stimulating Hormone (TSH) 1.23 0.35-4.94 UIU/ML Salicylates Level < 5.0 L 5.0-20.0 MG/DL Acetaminophen Level < 10 L 10-30 UG/ML Serum Alcohol < 10 <10 MG/DL Urine Color YELLOW Urine Clarity CLEAR Urine pH 7.0 5-9 Urine Specific [place] 1.020 1.016-1.022 Urine Protein TRACE H NEGATIVE Urine Glucose (UA) NEGATIVE NEGATIVE Urine Ketones NEGATIVE NEGATIVE Urine Nitrite NEGATIVE NEGATIVE Urine Bilirubin NEGATIVE NEGATIVE Urine Urobilinogen 1.0 < = 1.0 MG/DL Urine Leukocyte Esterase NEGATIVE NEGATIVE Urine RBC (Auto) NEGATIVE NEGATIVE Urine RBC 0-2 /HPF Urine WBC 5-10 H /HPF Urine Crystals NONE /LPF Urine Bacteria FEW H /HPF Urine Casts NONE /LPF Urine Mucus NEGATIVE /LPF Urine Other MOD SPERM H /HPF Urine Culture Indicated CULTURE PENDING Urine Opiates Screen NEGATIVE NEGATIVE Urine Oxycodone Screen NEGATIVE NEGATIVE Urine Methadone Screen NEGATIVE NEGATIVE Urine Propoxyphene Screen NEGATIVE NEGATIVE Urine Barbiturates Screen NEGATIVE NEGATIVE Ur Tricyclic Antidepressants Screen NEGATIVE NEGATIVE Urine Phencyclidine Screen NEGATIVE NEGATIVE Urine Amphetamines Screen POSITIVE H NEGATIVE Urine Methamphetamines Screen POSITIVE H NEGATIVE Urine Benzodiazepines Screen POSITIVE H NEGATIVE Urine Cocaine Screen NEGATIVE NEGATIVE Urine Cannabinoids Screen NEGATIVE NEGATIVE Blood Gas Puncture Site LBRACH Blood Gas Patient Temperature 41.9 Arterial Blood pH 7.25 *L 7.37-7.43 Arterial Blood Partial Pressure CO2 55 H 35-45 MMHG Arterial Blood Partial Pressure O2 40 L 79-93 MMHG Arterial Blood HCO3 23 23-27 MMOL/L Arterial Blood Total CO2 24.0 21.0-31.0 MMOL/L Arterial Blood Oxygen Saturation 48 L 94-100 % Arterial Blood Base Excess -4.0 L -2.5-2.5 MMOL/L Mike Test YES-POS Blood Gas Ventilator Setting YES Blood Gas Inspired Oxygen 100% Lactic Acid Level 6.99 *H 0.50-2.00 MMOL/L Influenza Type A (RT-PCR) Not Detected Not Detecte Influenza Type B (RT-PCR) Not Detected Not Detecte SARS-CoV-2 RNA (RT-PCR) Not Detected Not Detecte Test 06/23/22 09:13 06/23/22 11:58 06/23/22 13:37 06/23/22 14:15 Range/Units Lactic Acid Level 3.49 *H 4.67 *H 5.80 *H 0.50-2.00 MMOL/L White Blood Count 10.1 4.3-11.0 10^3/uL Red Blood Count 5.16 4.30-5.52 10^6/uL Hemoglobin 16.7 13.3-17.7 g/dL Hematocrit 49 40-54 % Mean Corpuscular Volume 94 80-99 fL Mean Corpuscular Hemoglobin 32 25-34 pg Mean Corpuscular Hemoglobin Concent 34 32-36 g/dL Red Cell Distribution Width 12.5 10.0-14.5 % Platelet Count 65 L 130-400 10^3/uL Mean Platelet Volume 10.0 9.0-12.2 fL Immature Granulocyte % (Auto) 7 % Neutrophils (%) (Auto) 36 L 42-75 % Lymphocytes (%) (Auto) 46 H 12-44 % Monocytes (%) (Auto) 10 0-12 % Eosinophils (%) (Auto) 1 0-10 % Basophils (%) (Auto) 1 0-10 % Neutrophils # (Auto) 3.7 1.8-7.8 10^3/uL Lymphocytes # (Auto) 4.7 H 1.0-4.0 10^3/uL Monocytes # (Auto) 1.0 0.0-1.0 10^3/uL Eosinophils # (Auto) 0.1 0.0-0.3 10^3/uL Basophils # (Auto) 0.1 0.0-0.1 10^3/uL Immature Granulocyte # (Auto) 0.7 H 0.0-0.1 10^3/uL Percent Immature Platelet Fraction 2.0 0.0-7.6 % Prothrombin Time 39.7 H 12.2-14.7 SEC INR Comment 4.0 H 0.8-1.4 Activated Partial Thromboplast Time 115 *H 24-35 SEC Fibrinogen 60 L 221-496 MG/DL D-Dimer >= 20.00 H 0.00-0.49 UG/ML Bedside Blood Gas pH (LAB) 7.205 *L 7.310-7.410 Bedside Blood Gas pCO2 (LAB) 49.2 41.0-51.0 mmHg Bedside Blood Gas pO2 (LAB) 23 *L 80-105 mmHg Bedside Blood Gas HCO3 (LAB) 19.5 L 23.0-28.0 mmol/L POC Blood Gas Total CO2 Calc 21 L 24-29 mmol/L Bedside Bl Gas O2 Saturation (Calc) 29 L 95-98 % Bedside Arterial Blood Base Excess -8 L -2-3 mmol/L Test 06/23/22 15:07 06/23/22 15:27 06/23/22 16:15 06/23/22 16:35 Range/Units White Blood Count 10.8 4.3-11.0 10^3/uL Red Blood Count 3.79 L 4.30-5.52 10^6/uL Hemoglobin 12.2 L 13.3-17.7 g/dL Hematocrit 37 L 40-54 % Mean Corpuscular Volume 98 80-99 fL Mean Corpuscular Hemoglobin 32 25-34 pg Mean Corpuscular Hemoglobin Concent 33 32-36 g/dL Red Cell Distribution Width 13.1 10.0-14.5 % Platelet Count 36 *L 130-400 10^3/uL Mean Platelet Volume 10.2 9.0-12.2 fL Immature Granulocyte % (Auto) 5 % Neutrophils (%) (Auto) 39 L 42-75 % Lymphocytes (%) (Auto) 47 H 12-44 % Monocytes (%) (Auto) 9 0-12 % Eosinophils (%) (Auto) 0 0-10 % Basophils (%) (Auto) 0 0-10 % Neutrophils # (Auto) 4.2 1.8-7.8 X 10^3 Lymphocytes # (Auto) 5.1 H 1.0-4.0 X 10^3 Monocytes # (Auto) 0.9 0.0-1.0 X 10^3 Eosinophils # (Auto) 0.0 0.0-0.3 10^3/uL Basophils # (Auto) 0.0 0.0-0.1 10^3/uL Immature Granulocyte # (Auto) 0.5 H 0.0-0.1 10^3/uL Sodium Level 139 135-145 MMOL/L Potassium Level 6.5 #*H 3.6-5.0 MMOL/L Chloride Level 108 H 98-107 MMOL/L Carbon Dioxide Level 12 L 21-32 MMOL/L Anion Gap 19 H 5-14 MMOL/L Blood Urea Nitrogen 20 H 7-18 MG/DL Creatinine 3.53 #H 0.60-1.30 MG/DL Estimat Glomerular Filtration Rate 23 BUN/Creatinine Ratio 6 Glucose Level 9 *L 70-105 MG/DL Lactic Acid Level 6.36 *H 0.50-2.00 MMOL/L Calcium Level 6.5 L 8.5-10.1 MG/DL Corrected Calcium 7.1 L 8.5-10.1 MG/DL Phosphorus Level 4.8 H 2.3-4.7 MG/DL Magnesium Level 2.3 1.6-2.4 MG/DL Total Bilirubin 0.6 0.1-1.0 MG/DL Aspartate Amino Transf (AST/SGOT) 853 H 5-34 U/L Alanine Aminotransferase (ALT/SGPT) 327 H 0-55 U/L Alkaline Phosphatase 59 40-136 U/L Total Protein 4.8 L 6.4-8.2 GM/DL Albumin 3.3 3.2-4.5 GM/DL Bedside Blood Gas pH (LAB) 7.202 *L 7.310-7.410 Bedside Blood Gas pCO2 (LAB) 38.4 L 41.0-51.0 mmHg Bedside Blood Gas pO2 (LAB) 510 H 80-105 mmHg Bedside Blood Gas HCO3 (LAB) 15.1 *L 23.0-28.0 mmol/L POC Blood Gas Total CO2 Calc 16 L 24-29 mmol/L Bedside Bl Gas O2 Saturation (Calc) 100 H 95-98 % Bedside Arterial Blood Base Excess -13 L -2-3 mmol/L Glucometer 335 H 196 H 70-110 MG/DL Test 06/23/22 17:12 Range/Units Glucometer 134 H 70-110 MG/DL Radiology Initial 06/23/22 CXR: IMPRESSION: 1. Interval intubation. Endotracheal tube tip is only at level of the thoracic inlet and should be advanced at least 6 to 7 cm positioning into the lower trac hea. 2. Bilateral somewhat prominent reticulonodular opacities within both lung oswald, currently nonspecific. May be reflective of atypical pneumonitis or asymmetric edema. Followup imaging is recommended. CT head 06/23/22: IMPRESSION: 1. No acute intracranial process is detected. 2. Paranasal sinus disease. Physical Exam-([facility]) Physical Exam Vital Signs VS - Last 72 Hours, by Label 06/23/22 06/23/22 06/23/22 06/23/22 06:34 06:34 06:50 07:02 Temp 43.0 Pulse 16 168 Resp 40 28 B/P (MAP) 193/183 (186) Pulse Ox 91 100 O2 Delivery Room Air Room Air OxyMask O2 Flow Rate 15.00 FiO2 100 06/23/22 06/23/22 06/23/22 06/23/22 07:02 07:13 07:35 08:09 Temp 43.2 Pulse 161 172 176 Resp 28 36 B/P (MAP) 53/23 98/57 Pulse Ox 98 FiO2 60 06/23/22 06/23/22 06/23/22 06/23/22 09:25 12:27 12:45 12:45 Temp 41.4 39.5 39.6 Pulse 154 147 146 Resp 28 27 32 B/P (MAP) 89/61 109/37 Pulse Ox 99 95 98 O2 Delivery Room Air Mechanical Ventilator O2 Flow Rate 100.00 FiO2 100 06/23/22 06/23/22 06/23/22 06/23/22 12:51 13:00 13:15 13:16 Temp 39.6 39.4 39.4 Pulse 149 137 147 147 Resp 39 33 23 B/P (MAP) 121/70 124/87 121/70 Pulse Ox 98 92 88 O2 Delivery Mechanical Ventilator Mechanical Ventilator Mechanical Ventilator O2 Flow Rate 100.00 100.00 FiO2 100 06/23/22 06/23/22 06/23/22 06/23/22 13:30 13:31 13:45 13:46 Temp 39.3 39.3 39.3 Pulse 147 147 147 Resp 34 25 B/P (MAP) 94/54 79/32 Pulse Ox 97 94 95 O2 Delivery Mechanical Ventilator Mechanical Ventilator Mechanical Ventilator O2 Flow Rate 100.00 100.00 FiO2 100 100 06/23/22 06/23/22 06/23/22 06/23/22 14:00 14:04 14:15 14:30 Temp 39.2 39.3 39.1 Pulse 128 128 16 123 Resp 26 B/P (MAP) 94/54 68/48 110/55 Pulse Ox 94 94 94 O2 Delivery Mechanical Ventilator Mechanical Ventilator Mechanical Ventilator O2 Flow Rate 100.00 100.00 100.00 06/23/22 06/23/22 06/23/22 06/23/22 14:35 14:45 14:51 14:54 Temp 39.0 Pulse 124 124 124 124 Resp 30 B/P (MAP) 110/55 54/32 57/21 57/21 Pulse Ox 98 O2 Delivery Mechanical Ventilator O2 Flow Rate 100.00 06/23/22 06/23/22 06/23/22 06/23/22 15:00 15:26 15:29 15:51 Temp 38.9 38.9 38.7 38.7 38.9 Pulse 115 125 128 Resp 24 25 B/P (MAP) 65/30 Pulse Ox 91 O2 Delivery Mechanical Ventilator O2 Flow Rate 100.00 FiO2 100 06/23/22 06/23/22 06/23/22 06/23/22 16:00 16:15 16:30 16:35 Temp 38.6 38.6 38.4 Pulse 129 118 138 Resp B/P (MAP) 114/51 100/36 94/61 Pulse Ox 81 81 79 O2 Delivery Mechanical Ventilator Mechanical Ventilator Mechanical Ventilator O2 Flow Rate 100.00 100.00 100.00 06/23/22 06/23/22 16:45 17:05 Temp 38.2 Pulse 138 138 Resp 23 B/P (MAP) 35/ 35/23 Pulse Ox 80 O2 Delivery Mechanical Ventilator O2 Flow Rate 100.00 Capillary Refill : General Appearance: other (intubated, no response to painful stimuli) Eyes: Bilateral Eye PERRL (sluggish) Neck: other (edema in right neck around IJ) Respiratory: lungs clear Cardiovascular: tachycardia Gastrointestinal: normal bowel sounds, soft Extremities: no pedal edema, slow capillary refill, other (marked edema and bruising in right groin with active dark red blood oozing) Skin: cyanosis, cool, other (petechiae on feet and toes in the morning, spreading up legs in the afternoon) Assessment/Plan Assessment/Plan Admission Status: Inpatient Order (span 2 midnights) Reason for Inpatient Admission: Severe hypotension and multiorgan dysfunction Assessment & Plan Suspected Neuroleptic malignant syndrome: marked hyperthermia, tachycardia, h ypertension and rigidity on admission. Suspect NMS, although unknown if he took any antipschotics. UDS positive for meth which may cause some but wouldn't expect this severe. Responded to Dantrolene with decreased temperature and improved muscle rigidity, is being continued on drip. 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 Appreciate ICU recommendations. Due to severe hypotension, suspect he is not stable for transfer, but will initiate discussion given he would benefit from tertiary care center. DIC: normal coags on admit, now with platelets down to 36 and elevated INR above 4, PTT high, fibrinogen low and D dimer high. Receiving FFP, cryoprecipitate and platelets, continuing to have some bleeding around venous access sites. Ordered emergency delivery of more platelets to the hospital as he has received the only unit available. Acute renal failure: secondary to above, attempting to treat underlying hypotension, but is developing acidosis and hyperkalemia. Hyperkalemia: secondary to renal failure, receiving calcium gluconate and bicarb per ICU physician. Discussing whether transfer is possible given anticipated need for renal replacement therapy, but his BP remains dangerously low on maxed pressors, likely will not be able to stabilize for transfer. Lactic acidosis: secondary to severe hypotension, unclear whether sepsis is contributing, but not high on differential, however is receiving antibiotics as noted above. Transaminitis: suspect shock liver due to hypotension, AST/ALT markedly rapidly increased from normal initially on admit, continuing to work on achieving adequate circulate. Disp: discussed condition with his father, prognosis is grim at this time and he appears to be unlikely to be able to tolerate transfer, but we have initiated transfer conversation with [facility] to have them review his information in order to pursue all possible avenues. His father states he would want everything possible done. RAJAT KNOWLES MD Jun 23, 2022 12:11
[2022-06-23 12:24] LABS: PLATELET COUNT 65 10^3/uL (130-400)
[2022-06-23 12:44] LABS: FIBRINOGEN 60 MG/DL (221-496); PROTHROMBIN TIME PATIENT 39.7 SEC (12.2-14.7)
--- NOTE | 2022-06-23 12:47 | Diagnostic Imaging Report ---
INDICATION: Hematoma right groin. Patient had a femoral central line attempt. FINDINGS: Primarily monophasic waveforms within the right common femoral artery, superficial femoral artery, and popliteal arteries are noted. There is monophasic flow in the posterior tibial at the ankle. The dorsalis pedis was not well visualized. The velocities are unremarkable. Attempts were made to evaluate the common femoral vein and superficial femoral vein. Several images do demonstrate a questionable arterial spike in the upper and mid superficial femoral vein. An AV fistula cannot be entirely excluded. No fluid collection or pseudoaneurysm is detected. IMPRESSION: Monophasic waveforms throughout the right lower extremity arterial system without evidence of high-grade stenosis. There are some questionable arterialized waveforms within the upper and mid superficial femoral vein and an AV fistula cannot be entirely excluded. Followup would be recommended. Dictated by: Dictated on workstation # [id number]
--- NOTE | 2022-06-23 12:48 | Diagnostic Imaging Report ---
PROCEDURE: CT head without contrast. TECHNIQUE: Multiple contiguous axial images were obtained through the brain without the use of intravenous contrast. Auto Exposure Controls were utilized during the CT exam to meet ALARA standards for radiation dose reduction. INDICATION: Tremors and altered mental status. COMPARISON: No prior studies are available for comparison. FINDINGS: The ventricles and sulci are within normal limits. No sulcal effacement or midline shift is identified. No acute intra-axial or extra-axial hemorrhage is detected. The cisterns are patent. The visualized paranasal sinuses demonstrate a small amount of fluid in the maxillary sinuses, sphenoid sinus, and ethmoid air cells. IMPRESSION: 1. No acute intracranial process is detected. 2. Paranasal sinus disease. Dictated by: Dictated on workstation # [id number]
[2022-06-23] MEDS ORDERED: VASOPRESSIN INJECTION 20 UNIT in NS (IVPB) 100 ML IV SCH (13:00)
[2022-06-23] MEDS ORDERED: NS IV 1000 ML 1,000 ML IV SCH ×2 (13:00→13:15)
[2022-06-23 13:10] LABS: FIBRIN DEGRADATION PRODUCTS >= 20.00 UG/ML (0.00-0.49); PARTIAL THROMBOPLASTIN TIME 115 SEC (24-35)
--- NOTE | 2022-06-23 13:14 | Tele-ICU Consult ---
History of Present Illness History of Present Illness Date Seen by Provider: Jun 23, 2022 Time Seen by Provider: 13:15 Date of Admission 06/23/2022 History of Present Illness (Tele-ICU Physician , consultation) Available chart/ vitals / labs / Images reviewed H&P is from ER notes Patient's information available about PMH, allergy reviewed in EMR. ROS as per chart and RN report Video assessment done using teleICU camera, rest of exam as per RN Discussed with RN. Hospital course. This 31-year-old male apparently was in the emergency room yesterday with some atypical chest pain. He was noncompliant with the recommendations and subsequently he is treated and released him. Last night he was found to be unconscious by his father and EMS was called. Upon arrival to the emergency room he has a very severe hypertension with systolic blood pressure over 200 and a heart rate about 170 and temperature is over 106 per ER physician and she intubated him and put on mechanical ventilation. After intubation his blood pressure actually dropped. At this point she contacted me for guidance. I advised her to give IV Solu-Cortef, dantrolene sodium and antibiotic coverage for meningitis such as Rocephin and vancomycin. Advised also to do a CT of the brain and lumbar puncture. CT of the brain done which was a negative however lumbar puncture was attempted and unsuccessful. After giving the dantrolene sodium his temperature dropped by 2 F. A central line was attempted via right groin but was unsuccessful due to development of a hematoma and it was taken out and subsequently right IJ CVC catheter inserted without complication. Chest x-ray initially showed no acute infiltrates. Arterial blood gas done initially showed hypoxia but on the monitor he was showing oxygen saturation 94% and it is felt that it was a venous blood gas. Subsequently patient transferred to the intensive care unit I have monitored him via video visit and discussed with the ICU RNs. fluid bolus given and vasopressin started as patient continues to be hypotensive. I was told patient also developed thrombocytopenia and petechial hemorrhages which I could not appreciate with video visit . DIC work-up done and his INR went up to 4.80 PTT elevated. 4 units of FFP has been ordered. He continues to be hypotensive and tachycardic. IV albumin ordered. Also Mayur-Synephrine ordered. Earlier blood cultures ordered. I had felt that there is a remote chance that he may have a r ickettsial infection hence I started on also doxycycline. Given Solu-Cortef for stress doses. He is too unstable to transfer anywhere to Tertiary care center at this time. urine drug screen came out positive for amphetamine, Meth amphetamines and benzodiazepines. It is quite possible all his symptoms could be from drug overdose itself. Allergies and Home Medications Allergies Coded Allergies: No Known Drug Allergies (Unverified , 02/03/17) Home Medications Acetaminophen with Codeine 1 Each Tablet, 1 EACH PO TID Prescribed by: NIKOLAS NASCIMENTO on 11/13/19 1514 Clindamycin HCl 150 Mg Capsule, 150 MG PO Q6H Prescribed by: MARCOS DESIR on 08/20/21 183 Cyclobenzaprine HCl 10 Mg Tablet, 10 MG PO Q8H Prescribed by: ANDRIA DAWSON on 02/02/172248 Doxycycline Hyclate 100 Mg Tablet, 100 MG PO BID Prescribed by: NIKOLAS NASCIMENTO on 11/13/19 1514 Hydrocodone/Acetaminophen 1 Each Tablet, 1 TAB PO Q4H PRN for PAIN-MODERATE (5- 7) Prescribed by: ARIELLE ARREDONDO on 11/09/21 1823 Ibuprofen 400 Mg Tablet, 400 MG PO Q4H PRN for PAIN Over the counter. No more than 2400 mg in 24 hours Prescribed by: LUCÍA MORALES on 08/10/15 0920 Ibuprofen 800 Mg Tablet, 800 MG PO Q8H PRN for PAIN Prescribed by: MARCOS DESIR on 08/20/21 1834 Naproxen 500 Mg Tablet, 500 MG PO BID Prescribed by: ANDRIA DAWSON on 02/02/172248 Tramadol HCl 50 Mg Tablet, 50 MG PO Q4H Prescribed by: ANDRIA DAWSON on 02/02/172248 Past Medical/Social/Family Hx Immunizations Up To Date Tetanus Booster (TDap): Unknown Hepatitis A: Yes Hepatitis B: Yes TB Skin Test: None Current Status Primary Language: Beninese Preferred Spoken Language: Beninese Review of Systems Constitutional: other (sedate,intubated, acutely sick.) Focused Exam Lactate Level 06/23/22 07:36: Lactic Acid Level 6.99*H 06/23/22 09:13: Lactic Acid Level 3.49*H 06/23/22 11:58: Lactic Acid Level 4.67*H Height, Weight, BMI Height: 5'9.00" Weight: 195lbs. 0.0oz. 88.613935tr; 27.00 BMI Method:Stated Lactic Acid Level Laboratory Tests Test 06/23/22 11:58 Lactic Acid Level 4.67 MMOL/L (0.50-2.00) *H Exam Exam Patient acknowledged, consented, and participated in this virtual visit which was conducted using real time audio/video Vital Signs Date Time Temp Pulse Resp B/P (MAP) Pulse Ox O2 Delivery O2 Flow Rate FiO2 06/23/22 09:25 41.4 06/23/22 08:09 176 36 98/57 06/23/22 07:35 172 28 98 60 06/23/22 07:13 161 53/23 06/23/22 07:02 43.2 06/23/22 07:02 168 28 100 100 06/23/22 06:50 OxyMask 15.00 06/23/22 06:34 Room Air 06/23/22 06:34 43.0 16 40 193/183 (186) 91 Room Air Height & Weight Height: 5'9.00" Weight: 195lbs. 0.0oz. 88.252776at; 27.00 BMI Method:Stated General Appearance: Severe Distress, Thin HEENT: PERRL/EOMI, Other (Clenched teeth, poor dentition) Neck: Normal Inspection, Other (Healing scar midline over the thyroid cartilage) Respiratory: Lungs Clear, Normal Breath Sounds, No Accessory Muscle Use, No Respiratory Distress, Other (Rapid shallow breathing) Cardiovascular: Regular Rate, Rhythm, Normal Peripheral Pulses, Tachycardia Extremity: Normal Inspection, Other (Rigid extremities) Neurologic/Psychiatric: Other (Unresponsive to painful stimuli, eyes closed, nonverbal) Skin: Other (Warm and profusely diaphoretic) Results Lab Laboratory Tests 06/23/22 06:50 06/23/22 11:58 Assessment/Plan Assessment/Plan 1. This patient who became unresponsive and positive for methamphetamine and amphetamine and the drug screen may have overdosed with the methamphetamine and caused unconsciousness. 2. Hyperthermia this severe magnitude it is unlikely from the drug overdose alone hence other causes are being considered in the differential diagnosis including malignant hyperthermia, meningitis and severe sepsis and rickettsial diseases such as [place] spotted fever in the differential diagnosis. 3. Severe septic shock as above 4. Acute hypoxic respiratory failure secondary to the above 5. Patient with coagulopathy developed while in the hospital likely due to underlying sepsis probably has a DIC. 6. Acute kidney injury related to severe sepsis. It is likely to get worse. 7. Lactic acidosis due to severe sepsis. Recommendations 1. Continue mechanical ventilatory support and adjust settings based on arterial blood gases and metabolic abnormalities. 2. Patient most probably developing ARDS hence will not increase the PEEP and further adjustment as the circumstances dictate 3. As patient has coagulopathy no need for DVT prophylaxis but will give FFP and cryoprecipitate. Recheck coag profile and platelet and transfuse as necessary. 4. We will give IV Solu-Cortef for stress doses 5. IV antibiotics with vancomycin, Rocephin and doxycycline to cover gram- positive gram-negative and rickettsial diseases. It will also cover atypical pneumonias such as mycoplasma or Legionella. 6. We will give IV Protonix for GI prophylaxis. 7. In view of severe rigidity and very high temperature, malignant hyperthermia, we will also give IV dantrolene which was given IV pushes until earlier and I will start now IV infusion. 8. He is a too unstable to transfer anywhere at this time but will consider to transfer to another redistribute if he becomes a little bit more stable 9. Cardiology consultation requested in view of for right groin questionable AV fistula following attempted insertion of CVC line 10. We will get a stat echocardiogram to check his LV function. And also to rule out any vegetations. 11. His prognosis is poor. Patient's family is aware. Collaboration with the bedside consultants and IM MDs. Advised RN to contact eICU for any questions or concerns. CC time is > 2 hours. Critical Care: Ventilator Management Time spent with patient (mins): 120 DAREN PAYNE MD Jun 23, 2022 13:14
[2022-06-23] MEDS ORDERED: WATER STERILE FOR IV ONE (13:42)
[2022-06-23] MEDS ORDERED: ETOMIDATE IV SOLN 20 MG/10 ML VIAL IV ONE (13:42)
[2022-06-23] MEDS ORDERED: fentaNYL INJ 100 MCG/2 ML AMP IV ONE (13:42)
[2022-06-23] MEDS ORDERED: MIDAZOLAM 5 MG/5 ML (VERSED) VIAL IJ ONE (13:42)
[2022-06-23] MEDS: ALBUMIN 25% 25 GM/100 ML 100 ML IV SCH ×4 (13:59→17:16)
[2022-06-23] MEDS ORDERED: SODIUM BICARB 8.4% 50 MEQ/50 ML (ABBOTT) SYR IV NR ×2 (14:00→18:45)
[2022-06-23] MEDS: DOXYCYCLINE INJECTION 100 MG in NS (IVPB) 100 ML IV SCH ×2 (14:09→21:07)
[2022-06-23] MEDS ORDERED: PHENYLEPHRINE DRIP 250 ML IV SCH (14:30)
[2022-06-23] MEDS ORDERED: VANCOMYCIN INJECTION 0.1 MG in NS (IVPB) 250 ML IV SCH (14:45)
[2022-06-23] MEDS: PHENYLEPHRINE DRIP 250 ML IV SCH ×2 (14:54→17:05)
[2022-06-23] MEDS ORDERED: VANCOMYCIN 750 MG/NS 250 ML IVPB IV NR ×2 (15:15)
[2022-06-23 15:22] LABS: BASOPHILS % (AUTO) 0 % (0-10); EOSINOPHILS % (AUTO) 0 % (0-10); HEMATOCRIT 37 % (40-54); HEMOGLOBIN 12.2 g/dL (13.3-17.7); LYMPHOCYTES # (AUTO) 5.1 X 10^3 (1.0-4.0); LYMPHOCYTES % (AUTO) 47 % (12-44); MEAN CORPUSCULAR HEMOGLOBIN 32 pg (25-34); MEAN CORPUSCULAR HGB CONC 33 g/dL (32-36); MEAN CORPUSCULAR VOLUME 98 fL (80-99); MEAN PLATELET VOLUME 10.2 fL (9.0-12.2); MONOCYTES # (AUTO) 0.9 X 10^3 (0.0-1.0); MONOCYTES % (AUTO) 9 % (0-12); NEUTROPHILS # (AUTO) 4.2 X 10^3 (1.8-7.8); NEUTROPHILS % (AUTO) 39 % (42-75); WHITE BLOOD COUNT 10.8 10^3/uL (4.3-11.0)
[2022-06-23] MEDS: RT-ALBUTEROL/IPRATROPIUM 3 ML (DUONEB) VIAL INH SCH ×2 (15:26→22:15)
[2022-06-23 15:34] LABS: PLATELET COUNT 36 10^3/uL (130-400)
[2022-06-23 15:50] LABS: ALBUMIN 3.3 GM/DL (3.2-4.5)
[2022-06-23 15:51] LABS: CALCIUM 6.5 MG/DL (8.5-10.1)
[2022-06-23 15:53] LABS: TOTAL PROTEIN 4.8 GM/DL (6.4-8.2)
[2022-06-23 15:54] LABS: BILIRUBIN,TOTAL 0.6 MG/DL (0.1-1.0)
[2022-06-23 15:56] LABS: CREATININE SERUM 3.53 MG/DL (0.60-1.30); PHOSPHORUS 4.8 MG/DL (2.3-4.7)
[2022-06-23 15:59] LABS: MAGNESIUM 2.3 MG/DL (1.6-2.4)
[2022-06-23] MEDS ORDERED: DANTROLENE IV SCH (16:00)
[2022-06-23] MEDS ORDERED: STERILE IV SCH (16:00)
[2022-06-23] MEDS ORDERED: WATER FOR INJECTION IV SCH (16:00)
[2022-06-23 16:02] LABS: POTASSIUM 6.5 MMOL/L (3.6-5.0)
[2022-06-23] MEDS ORDERED: CALC GLUC 1 GM/100 ML IV ONE (16:07)
[2022-06-23] MEDS ORDERED: DEXTROSE 50% 50 ML (IMS) SYR ONE (16:07)
[2022-06-23] MEDS ORDERED: SODIUM BICARB 8.4% 50 MEQ/50 ML (ABBOTT) SYR ONE (16:08)
[2022-06-23] MEDS ORDERED: DEXTROSE 50% 50 ML (IMS) SYR IV ONE ×2 (16:15)
[2022-06-23] MEDS ORDERED: SODIUM BICARB 8.4% 50 MEQ/50 ML (ABBOTT) SYR IV ONE ×2 (16:15)
[2022-06-23] MEDS ORDERED: CALC GLUC 1 GM/100 ML IVPB 100 ML IV NR ×2 (16:15)
[2022-06-23] MEDS ORDERED: RT-ALBUTEROL/IPRATROPIUM 3 ML (DUONEB) VIAL INH PRN (17:00)
--- NOTE | 2022-06-23 17:14 | Consultation-Cardiology ---
HPI-Cardiology Cardiology Consultation Date of Consultation 06/23/22 Date of Admission Time Seen by Provider: 17:09 Indication: Hypotensive shock HPI This is a 31-year-old gentleman who is intubated and unresponsive. Ventilator dependent. Unable to provide any history. The history was obtained by reviewing his record and discussing the management plan with the primary care physician. Patient apparently came into the emergency room with some atypical chest pain and he has been noncompliant with the recommendation and he was discharged, found unconscious by his father who called EMS. Patient has severe hypertension noted by EMS. Heart rate about 170. He was intubated in the emergency room then became severely hypotensive. Since then has been on multiple pressors with severe hypotension. Work-up including CT of the brain was done and did not show any acute abnormality. Patient was noted to have positive drug screen for amphetamine, methamphetamine, benzodiazepine. Home Medications & Allergies Allergies: Coded Allergies: No Known Drug Allergies (Unverified , 02/03/17) Home Medication List Reviewed: No Unable to provide medication list [id number] Hx Patient Social History Type Used: Cigarettes 2nd Hand Smoke Exposure: Yes Recent Hopitalizations: No Immunizations Up To Date Tetanus Booster (TDap): Less than 5yrs Past Medical History Unable to provide any past history Family Medical History Family Medical Hx Noncontributory Review of Systems-General Review of Systems Constitutional: other (sedate,intubated, acutely sick.) Reviewed Test Results Reviewed Test Results Lab Laboratory Tests Test 06/23/22 06:50 06/23/22 06:59 06/23/22 07:29 06/23/22 07:36 Range/Units White Blood Count 9.8 4.3-11.0 10^3/uL Red Blood Count 4.93 4.30-5.52 10^6/uL Hemoglobin 15.9 13.3-17.7 g/dL Hematocrit 47 40-54 % Mean Corpuscular Volume 95 80-99 fL Mean Corpuscular Hemoglobin 32 25-34 pg Mean Corpuscular Hemoglobin Concent 34 32-36 g/dL Red Cell Distribution Width 11.7 10.0-14.5 % Platelet Count 238 130-400 10^3/uL Mean Platelet Volume 10.4 9.0-12.2 fL Immature Granulocyte % (Auto) 1 % Neutrophils (%) (Auto) 55 42-75 % Lymphocytes (%) (Auto) 39 12-44 % Monocytes (%) (Auto) 4 0-12 % Eosinophils (%) (Auto) 1 0-10 % Basophils (%) (Auto) 1 0-10 % Neutrophils # (Auto) 5.4 1.8-7.8 10^3/uL Lymphocytes # (Auto) 3.8 1.0-4.0 10^3/uL Monocytes # (Auto) 0.4 0.0-1.0 10^3/uL Eosinophils # (Auto) 0.1 0.0-0.3 10^3/uL Basophils # (Auto) 0.1 0.0-0.1 10^3/uL Immature Granulocyte # (Auto) 0.1 0.0-0.1 10^3/uL Prothrombin Time 14.2 12.2-14.7 SEC INR Comment 1.1 0.8-1.4 Activated Partial Thromboplast Time 24 24-35 SEC Sodium Level 145 135-145 MMOL/L Potassium Level 5.4 H 3.6-5.0 MMOL/L Chloride Level 104 98-107 MMOL/L Carbon Dioxide Level 14 L 21-32 MMOL/L Anion Gap 27 H 5-14 MMOL/L Blood Urea Nitrogen 14 7-18 MG/DL Creatinine 1.96 H 0.60-1.30 MG/DL Estimat Glomerular Filtration Rate 46 BUN/Creatinine Ratio 7 Glucose Level 91 70-105 MG/DL Glucometer 88 70-110 MG/DL Calcium Level 9.7 8.5-10.1 MG/DL Corrected Calcium 8.5-10.1 MG/DL Total Bilirubin 0.7 0.1-1.0 MG/DL Aspartate Amino Transf (AST/SGOT) 18 5-34 U/L Alanine Aminotransferase (ALT/SGPT) 16 0-55 U/L Alkaline Phosphatase 68 40-136 U/L Total Creatine Kinase 479 H 30-200 U/L Troponin I 0.031 H <0.028 NG/ML Total Protein 7.3 6.4-8.2 GM/DL Albumin 4.7 H 3.2-4.5 GM/DL Thyroid Stimulating Hormone (TSH) 1.23 0.35-4.94 UIU/ML Salicylates Level < 5.0 L 5.0-20.0 MG/DL Acetaminophen Level < 10 L 10-30 UG/ML Serum Alcohol < 10 <10 MG/DL Urine Color YELLOW Urine Clarity CLEAR Urine pH 7.0 5-9 Urine Specific [place] 1.020 1.016-1.022 Urine Protein TRACE H NEGATIVE Urine Glucose (UA) NEGATIVE NEGATIVE Urine Ketones NEGATIVE NEGATIVE Urine Nitrite NEGATIVE NEGATIVE Urine Bilirubin NEGATIVE NEGATIVE Urine Urobilinogen 1.0 < = 1.0 MG/DL Urine Leukocyte Esterase NEGATIVE NEGATIVE Urine RBC (Auto) NEGATIVE NEGATIVE Urine RBC 0-2 /HPF Urine WBC 5-10 H /HPF Urine Crystals NONE /LPF Urine Bacteria FEW H /HPF Urine Casts NONE /LPF Urine Mucus NEGATIVE /LPF Urine Other MOD SPERM H /HPF Urine Culture Indicated CULTURE PENDING Urine Opiates Screen NEGATIVE NEGATIVE Urine Oxycodone Screen NEGATIVE NEGATIVE Urine Methadone Screen NEGATIVE NEGATIVE Urine Propoxyphene Screen NEGATIVE NEGATIVE Urine Barbiturates Screen NEGATIVE NEGATIVE Ur Tricyclic Antidepressants Screen NEGATIVE NEGATIVE Urine Phencyclidine Screen NEGATIVE NEGATIVE Urine Amphetamines Screen POSITIVE H NEGATIVE Urine Methamphetamines Screen POSITIVE H NEGATIVE Urine Benzodiazepines Screen POSITIVE H NEGATIVE Urine Cocaine Screen NEGATIVE NEGATIVE Urine Cannabinoids Screen NEGATIVE NEGATIVE Blood Gas Puncture Site LBRACH Blood Gas Patient Temperature 41.9 Arterial Blood pH 7.25 *L 7.37-7.43 Arterial Blood Partial Pressure CO2 55 H 35-45 MMHG Arterial Blood Partial Pressure O2 40 L 79-93 MMHG Arterial Blood HCO3 23 23-27 MMOL/L Arterial Blood Total CO2 24.0 21.0-31.0 MMOL/L Arterial Blood Oxygen Saturation 48 L 94-100 % Arterial Blood Base Excess -4.0 L -2.5-2.5 MMOL/L Mike Test YES-POS Blood Gas Ventilator Setting YES Blood Gas Inspired Oxygen 100% Lactic Acid Level 6.99 *H 0.50-2.00 MMOL/L Influenza Type A (RT-PCR) Not Detected Not Detecte Influenza Type B (RT-PCR) Not Detected Not Detecte SARS-CoV-2 RNA (RT-PCR) Not Detected Not Detecte Test 06/23/22 09:13 06/23/22 11:58 06/23/22 13:37 06/23/22 14:15 Range/Units Lactic Acid Level 3.49 *H 4.67 *H 5.80 *H 0.50-2.00 MMOL/L White Blood Count 10.1 4.3-11.0 10^3/uL Red Blood Count 5.16 4.30-5.52 10^6/uL Hemoglobin 16.7 13.3-17.7 g/dL Hematocrit 49 40-54 % Mean Corpuscular Volume 94 80-99 fL Mean Corpuscular Hemoglobin 32 25-34 pg Mean Corpuscular Hemoglobin Concent 34 32-36 g/dL Red Cell Distribution Width 12.5 10.0-14.5 % Platelet Count 65 L 130-400 10^3/uL Mean Platelet Volume 10.0 9.0-12.2 fL Immature Granulocyte % (Auto) 7 % Neutrophils (%) (Auto) 36 L 42-75 % Lymphocytes (%) (Auto) 46 H 12-44 % Monocytes (%) (Auto) 10 0-12 % Eosinophils (%) (Auto) 1 0-10 % Basophils (%) (Auto) 1 0-10 % Neutrophils # (Auto) 3.7 1.8-7.8 10^3/uL Lymphocytes # (Auto) 4.7 H 1.0-4.0 10^3/uL Monocytes # (Auto) 1.0 0.0-1.0 10^3/uL Eosinophils # (Auto) 0.1 0.0-0.3 10^3/uL Basophils # (Auto) 0.1 0.0-0.1 10^3/uL Immature Granulocyte # (Auto) 0.7 H 0.0-0.1 10^3/uL Percent Immature Platelet Fraction 2.0 0.0-7.6 % Prothrombin Time 39.7 H 12.2-14.7 SEC INR Comment 4.0 H 0.8-1.4 Activated Partial Thromboplast Time 115 *H 24-35 SEC Fibrinogen 60 L 221-496 MG/DL D-Dimer >= 20.00 H 0.00-0.49 UG/ML Bedside Blood Gas pH (LAB) 7.205 *L 7.310-7.410 Bedside Blood Gas pCO2 (LAB) 49.2 41.0-51.0 mmHg Bedside Blood Gas pO2 (LAB) 23 *L 80-105 mmHg Bedside Blood Gas HCO3 (LAB) 19.5 L 23.0-28.0 mmol/L POC Blood Gas Total CO2 Calc 21 L 24-29 mmol/L Bedside Bl Gas O2 Saturation (Calc) 29 L 95-98 % Bedside Arterial Blood Base Excess -8 L -2-3 mmol/L Test 06/23/22 15:07 06/23/22 15:27 06/23/22 16:15 06/23/22 16:35 Range/Units White Blood Count 10.8 4.3-11.0 10^3/uL Red Blood Count 3.79 L 4.30-5.52 10^6/uL Hemoglobin 12.2 L 13.3-17.7 g/dL Hematocrit 37 L 40-54 % Mean Corpuscular Volume 98 80-99 fL Mean Corpuscular Hemoglobin 32 25-34 pg Mean Corpuscular Hemoglobin Concent 33 32-36 g/dL Red Cell Distribution Width 13.1 10.0-14.5 % Platelet Count 36 *L 130-400 10^3/uL Mean Platelet Volume 10.2 9.0-12.2 fL Immature Granulocyte % (Auto) 5 % Neutrophils (%) (Auto) 39 L 42-75 % Lymphocytes (%) (Auto) 47 H 12-44 % Monocytes (%) (Auto) 9 0-12 % Eosinophils (%) (Auto) 0 0-10 % Basophils (%) (Auto) 0 0-10 % Neutrophils # (Auto) 4.2 1.8-7.8 X 10^3 Lymphocytes # (Auto) 5.1 H 1.0-4.0 X 10^3 Monocytes # (Auto) 0.9 0.0-1.0 X 10^3 Eosinophils # (Auto) 0.0 0.0-0.3 10^3/uL Basophils # (Auto) 0.0 0.0-0.1 10^3/uL Immature Granulocyte # (Auto) 0.5 H 0.0-0.1 10^3/uL Sodium Level 139 135-145 MMOL/L Potassium Level 6.5 #*H 3.6-5.0 MMOL/L Chloride Level 108 H 98-107 MMOL/L Carbon Dioxide Level 12 L 21-32 MMOL/L Anion Gap 19 H 5-14 MMOL/L Blood Urea Nitrogen 20 H 7-18 MG/DL Creatinine 3.53 #H 0.60-1.30 MG/DL Estimat Glomerular Filtration Rate 23 BUN/Creatinine Ratio 6 Glucose Level 9 *L 70-105 MG/DL Lactic Acid Level 6.36 *H 0.50-2.00 MMOL/L Calcium Level 6.5 L 8.5-10.1 MG/DL Corrected Calcium 7.1 L 8.5-10.1 MG/DL Phosphorus Level 4.8 H 2.3-4.7 MG/DL Magnesium Level 2.3 1.6-2.4 MG/DL Total Bilirubin 0.6 0.1-1.0 MG/DL Aspartate Amino Transf (AST/SGOT) 853 H 5-34 U/L Alanine Aminotransferase (ALT/SGPT) 327 H 0-55 U/L Alkaline Phosphatase 59 40-136 U/L Total Protein 4.8 L 6.4-8.2 GM/DL Albumin 3.3 3.2-4.5 GM/DL Bedside Blood Gas pH (LAB) 7.202 *L 7.310-7.410 Bedside Blood Gas pCO2 (LAB) 38.4 L 41.0-51.0 mmHg Bedside Blood Gas pO2 (LAB) 510 H 80-105 mmHg Bedside Blood Gas HCO3 (LAB) 15.1 *L 23.0-28.0 mmol/L POC Blood Gas Total CO2 Calc 16 L 24-29 mmol/L Bedside Bl Gas O2 Saturation (Calc) 100 H 95-98 % Bedside Arterial Blood Base Excess -13 L -2-3 mmol/L Glucometer 335 H 196 H 70-110 MG/DL Physical Exam Physical Exam Vital Signs Vital Signs - First Documented 06/23/22 06/23/22 06:50 07:02 O2 Flow Rate 15.00 FiO2 100 Capillary Refill : Height, Weight, BMI Height: 5'9.00" Weight: 195lbs. 0.0oz. 88.438453ua; 27.00 BMI Method:Stated General Appearance: Severe Distress, Thin, Other (Intubated, unable to provide any history) Eyes: Bilateral Eye Normal Inspection, Bilateral Eye PERRL (Pupils 5 mm and reactive bilateral) HEENT: PERRL/EOMI, Other (Clenched teeth, poor dentition) Neck: Normal Inspection, Other (Healing scar midline over the thyroid cartilage) Respiratory: Lungs Clear, Normal Breath Sounds, No Accessory Muscle Use, No Respiratory Distress, Other (Rapid shallow breathing) Cardiovascular: Regular Rate, Rhythm, Normal Peripheral Pulses, Tachycardia Gastrointestinal: Abnormal Bowel Sounds (Hypoactive), Other (Nondistended) Extremity: Normal Inspection, Other (Rigid extremities) Neurologic/Psychiatric: Other (Unresponsive to painful stimuli, eyes closed, nonverbal) Skin: Other (Warm and profusely diaphoretic) A/P-Cardiology Admission Diagnosis Hypotensive shock Acute respiratory failure Acute left ventricular systolic dysfunction, congestive heart failure, nonischemic cardiomyopathy Acute renal failure Assessment/Plan Hypotensive shock with multiorgan failure. Acute respiratory failure, ventilator dependent. Acute congestive heart failure left ventricular systolic dysfunction, unknown etiology Acute renal failure Acute hepatic failure Metabolic acidosis Thrombocytopenia/DIC Anoxic brain injury Patient is unresponsive, currently off the sedation without any improvement in his mental status. He has been hypotensive on multiple pressors without improvement, in acute renal failure with metabolic acidosis and hyperkalemia, significant drop in his platelets and shock liver. There is questionable AV fistula at a triple-lumen site in his right groin. Conservative management is recommended at this point CT of the head did not show any acute abnormality, failed lumbar puncture attempt I recommend arrangement to transfer to a tertiary care center with possibility of dialysis available, neurology and infectious disease evaluation ADITHYA MEDEROS MD Jun 23, 2022 17:14
[2022-06-23] MEDS ORDERED: D5 NS 1000 ML IV SOLUTION 1,000 ML IV SCH (17:15)
[2022-06-23] MEDS: EPINEPHrine 1 MG INJECTION 8 MG in NS (IVPB) 242 ML IV SCH ×3 (17:49→22:25)
[2022-06-23] MEDS: NOREPINEPHRINE IV SCH ×2 (18:41→22:22)
[2022-06-23] MEDS: NS IV SCH ×4 (18:41→22:22)
[2022-06-23] MEDS ORDERED: SODIUM BICARBONATE 8.4% SYR 150 MEQ in D5W 1000 ML IV SOLUTION 1,000 ML IV SCH (18:45)
[2022-06-23] MEDS: PHENYLEPHRINE FOR DRIPS IV SCH ×2 (18:51→22:11)
[2022-06-23 19:22] LABS: ABSOLUTE RETIC # 74 10e9/uL (24-90); BAND NEUTROPHILS 7 %; LYMPHOCYTES % (MANUAL) 29 %; METAMYELOCYTES % 7 %; MONOCYTES % (MANUAL) 9 %; MYELOCYTES % 1 %; NEUTROPHILS % (MANUAL) 28 %; REACTIVE LYMPHOCYTES 19 %; RETICULOCYTE % 1.44 % (0.50-2.40)
[2022-06-23 19:23] LABS: RBC MORPH NORMAL
[2022-06-23 20:25] LABS: EOSINOPHILS % (AUTO) 0 % (0-10); HEMOGLOBIN 7.5 g/dL (13.3-17.7)
[2022-06-23 20:27] LABS: BASOPHILS % (AUTO) 0 % (0-10); HEMATOCRIT 23 % (40-54); LYMPHOCYTES # (AUTO) 3.1 10^3/uL (1.0-4.0); LYMPHOCYTES % (AUTO) 40 % (12-44); MEAN CORPUSCULAR HEMOGLOBIN 33 pg (25-34); MEAN CORPUSCULAR HGB CONC 33 g/dL (32-36); MEAN CORPUSCULAR VOLUME 100 fL (80-99); MEAN PLATELET VOLUME 10.8 fL (9.0-12.2); MONOCYTES # (AUTO) 0.8 10^3/uL (0.0-1.0); MONOCYTES % (AUTO) 11 % (0-12); NEUTROPHILS # (AUTO) 3.7 10^3/uL (1.8-7.8); NEUTROPHILS % (AUTO) 48 % (42-75); WHITE BLOOD COUNT 7.7 10^3/uL (4.3-11.0)
[2022-06-23 20:30] LABS: PLATELET COUNT 39 10^3/uL (130-400)
[2022-06-23 20:48] LABS: CREATININE SERUM 4.31 MG/DL (0.60-1.30); POTASSIUM 5.2 MMOL/L (3.6-5.0)
[2022-06-23 20:53] LABS: CALCIUM 5.7 MG/DL (8.5-10.1)
[2022-06-23] MEDS ORDERED: HYDROCORTISONE 100 MG/2 ML (Solu-CORTEF) VIAL IV SCH (22:00)
[2022-06-23] MEDS ORDERED: CALC GLUC 1 GM/100 ML IVPB 100 ML IV ONE (22:30)
--- NOTE | 2022-06-24 08:07 | Anesthesia-Procedure Note ---
Procedures/Interventions Procedure Start/Stop/Diagnosis Date of Procedure: Jun 23, 2022 Start Time: 14:09 Brief History Late entry from 06/23/22 at 1515 Called to ICU 12 for arterial line placement. Aware of patient's condition from previous call in ED when physician was requesting our assistance with LP. Unable to perform LP in ED due to absence of head imaging and suspected DIC. Several attempts made in patient's right and left radial artery with [employer] guidance prior to obtaining a line in patient's right radial. Arterial line flat with re ading 56/30 which correlated with NIBP. Pulsatile blood flow noted in line and flushed well. Opsite covering. Reported off to CONNIE Silveira. Stop Time: 15:10 KATHIE QUINN CRNA Jun 24, 2022 08:07
[2022-06-24] MEDS ORDERED: VANCOMYCIN 1500 MG/NS 500 ML IVPB IV SCH ×2 (15:00)
[2022-06-25] MEDS ORDERED: TROUGH ORDER-PHARMACY XX NR (14:00)
== END 2022-06-23 22:31 | disposition expired | DRG 871 ==
LOC: EDUNIT# 06:33 → ER 06:35 → ICU 08:30
PROVIDERS: ADMIT Family Medicine; ATTEND Family Medicine
PROC: 5A1935Z Respiratory Ventilation, Less than 24 Consecutive Hours (ICD-10-PCS; principal; 2022-06-23)
PROC: 0BH17EZ Insertion of Endotracheal Airway into Trachea, Via Natural or Artificial Opening (ICD-10-PCS; 2022-06-23)
PROC: 00JU3ZZ Inspection of Spinal Canal, Percutaneous Approach (ICD-10-PCS; 2022-06-23)
DX: A41.9 Sepsis, unspecified organism (principal); R65.21 Severe sepsis with septic shock; G21.0 Malignant neuroleptic syndrome; D65 Disseminated intravascular coagulation [defibrination syndrome]; J96.01 Acute respiratory failure with hypoxia; K72.00 Acute and subacute hepatic failure without coma; I50.21 Acute systolic (congestive) heart failure; N17.9 Acute kidney failure, unspecified; E87.2 Acidosis; T82.838A Hemorrhage due to vascular prosthetic devices, implants and grafts, initial encounter; G93.1 Anoxic brain damage, not elsewhere classified; I42.9 Cardiomyopathy, unspecified; Z66 Do not resuscitate; Z20.822 Contact with and (suspected) exposure to COVID-19; F15.90 Other stimulant use, unspecified, uncomplicated; F13.90 Sedative, hypnotic, or anxiolytic use, unspecified, uncomplicated; E16.2 Hypoglycemia, unspecified; F90.9 Attention-deficit hyperactivity disorder, unspecified type
CPT/HCPCS: 31500; 36415; 36600; 51702; 70450; 71045; 80048; 80053; 80306; 80320; 80329; 81000; 82140; 82550; 82805; 82947; 83605; 83735; 84100; 84443; 84484; 85007; 85025; 85027; 85045; 85055; 85379; 85384; 85610; 85730; 86850; 86900; 86901; 86927; 87040; 87070; 87088; 87205; 87636; 93005; 93306; 93926; 94002; 94640; 94799; 99291; 99292